=== PATIENT | male | born 1940 | race Caucasian/White ===

== ENCOUNTER 2018-10-09 14:20 | Inpatient (IN) | payer MEDICARE ==
[~2018-10-09] VITALS: Ht 177.8 cm; Wt 84.7 kg
[2018-10-09 14:44] LABS: BASOPHILS ABSOLUTE AUTO 0.06 K/mm3 (0.00-0.23); BASOPHILS PERCENT AUTO 1 % (0-2); EOSINOPHILS ABSOLUTE AUTO 0.15 K/mm3 (0.00-0.68); EOSINOPHILS PERCENT AUTO 2 % (0-6); Hematocrit 46.5 % (37.0-53.0); Hemoglobin 15.1 g/dL (13.5-17.5); IMMATURE GRAN ABSOLUTE AUTO 0.05 K/mm3 (0.00-0.10); IMMATURE GRAN PERCENT AUTO 1 % (0-1); LYMPHOCYTES ABSOLUTE AUTO 3.36 K/mm3 (0.84-5.20); LYMPHOCYTES PERCENT AUTO 37 % (21-46); MONOCYTES ABSOLUTE AUTO 0.71 K/mm3 (0.16-1.47); MONOCYTES PERCENT AUTO 8 % (4-13); Mean Corpuscular HGB 32.1 pg (26.0-34.0); Mean Corpuscular HGB Conc 32.5 g/dL (31.5-36.5); Mean Corpuscular Volume 99 fL (80-100); Mean Platelet Volume 10.1 fL (9.1-12.4); NEUTROPHILS ABSOLUTE AUTO 4.82 K/mm3 (1.96-9.15); NEUTROPHILS PERCENT AUTO 53 % (41-73); Platelet Count 210 K/mm3 (150-400); RDW Standard Deviation 47.8 fL (35.1-46.3); White Blood Cell Count 9.15 K/mm3 (4.00-11.30)
[2018-10-09 15:01] LABS: International Normalized Ratio 0.94
[2018-10-09 15:08] LABS: Alanine Aminotransfer (ALT/SGP 23 U/L (12-78); Albumin, Blood 3.6 g/dL (3.4-5.0); Alk Phos 66 U/L (50-136); Anion Gap 6 mmol/L (6-16); Aspartate Aminotrans (AST/SGOT 16 U/L (12-37); Bilirubin, Total 0.3 mg/dL (0.1-1.0); Blood Urea Nitrogen 23 mg/dL (8-24); Bun/Creatinine Ratio 22.3 (12.0-20.0); CO2, Blood 29 mmol/L (21-32); Calcium, Blood 8.8 mg/dL (8.5-10.1); Chloride, Blood 108 mmol/L (98-108); Creatinine, Blood 1.03 mg/dL (0.60-1.20); Globulin, Blood 3.5 g/dL (2.2-4.0); Glomerular Filtration Rate >60 (60-); Glucose, Blood 131 mg/dL (70-99); Potassium, Blood 3.6 mmol/L (3.5-5.5); Sodium, Blood 143 mmol/L (136-145); Total Protein, Blood 7.1 g/dL (6.4-8.2); Troponin I 0.037 ng/mL (0.000-0.040)
--- NOTE | 2018-10-09 16:30 | NUR ---
ASSUMED CARE: PT ARRIVED FROM [facility] POST STENT FOR STEMI. WOUND SITE RIGHT GROIN. SITE SOFT, NONTENDER. SCANT BLEEDING NOTED BENEATH TCG DRESSING. NO ACUTE CHANGES OR NEEDS AT THIS TIME.
[2018-10-09 16:54] LABS: BASOPHILS ABSOLUTE AUTO 0.05 K/mm3 (0.00-0.23); BASOPHILS PERCENT AUTO 0 % (0-2); EOSINOPHILS ABSOLUTE AUTO 0.04 K/mm3 (0.00-0.68); EOSINOPHILS PERCENT AUTO 0 % (0-6); Hematocrit 45.7 % (37.0-53.0); Hemoglobin 14.6 g/dL (13.5-17.5); IMMATURE GRAN PERCENT AUTO 1 % (0-1); LYMPHOCYTES ABSOLUTE AUTO 1.39 K/mm3 (0.84-5.20); LYMPHOCYTES PERCENT AUTO 9 % (21-46); MONOCYTES ABSOLUTE AUTO 0.56 K/mm3 (0.16-1.47); MONOCYTES PERCENT AUTO 4 % (4-13); Mean Corpuscular HGB 32.7 pg (26.0-34.0); Mean Corpuscular HGB Conc 31.9 g/dL (31.5-36.5); Mean Platelet Volume 10.1 fL (9.1-12.4); NEUTROPHILS ABSOLUTE AUTO 13.25 K/mm3 (1.96-9.15); NEUTROPHILS PERCENT AUTO 86 % (41-73); Platelet Count 181 K/mm3 (150-400); RDW Standard Deviation 49.1 fL (35.1-46.3); Red Blood Cell Count 4.47 M/mm3 (4.30-5.90); White Blood Cell Count 15.39 K/mm3 (4.00-11.30)
[2018-10-09 16:56] LABS: Mean Corpuscular Volume 102 fL (80-100)
--- NOTE | 2018-10-09 18:34 | NUR ---
SHIFT SUMMARY: PT RESTING QUIETLY. NEXT DOOR NEIGHBOR ARRIVED TO VISIT AND LET HIM KNOW STATUS OF HIS PETS. DENIES CHEST PAIN. AWARE TO KEEP HIMSELF FLAT UNTIL 1999. SIPS OF WATER PROVIDED. NO ACUTE CHANGES OR CONCERNS.
--- NOTE | 2018-10-09 19:00 | NUR ---
ASSUMED CARE ASSUMED CARE OF PATIENT. AWAKE AND ALERT. ORIENTED AND COOPERATIVE WITH CARE. OCCASIONAL CONFUSED STATEMENT AND IS FORGETFUL. ASSISTS WITH REPOSITIONING. MONITOR SHOWS NSR WITH FIRST DEGREE AV BLOCK. BP STABLE. O2 @ 2L WITH SATS 93-94%. RESPIRATIONS EVEN AND UNLABORED. DENIES C/O CHEST PAIN. DOES C/O LEFT UPPER QUADRANT PAIN AND STATES THAT IT "FEELS LIKE GAS PAINS." DENIES C/O NAUSEA AT THIS TIME. NS INFUSING @ 100CC/HR PER ORDER. VOIDING USING URINAL WITHOUT DIFFICULTY. PAS TO BLE. RIGHT GROIN SITE SOFT AND WITHOUT HEMATOMA- DRSG WITH SMALL AMOUNT OF SANGUINOUS DRAINAGE. SEE SHIFT ASSESSMENT FOR FULL ASESSMENT.
--- NOTE | 2018-10-09 20:25 | NUR ---
PAIN/NAUSEA PT C/O MILD LEFT UPPER QUADRANT PAIN AND STATES THAT IT "FEELS LIKE GAS PAINS." ALSO C/O INTERMITTENT MILD NAUSEA. CALL TO DR ST- NEW ORDERS RECEIVED.
--- NOTE | 2018-10-09 22:00 | NUR ---
REASSESSMENT MEDICATED WITH MAALOX PLUS @ 210 FOR GI UPSET. PT NOW STATES THAT HE IS PAIN FREE AND DENIES C/O NAUSEA.
--- NOTE | 2018-10-10 01:23 | NUR ---
C/O ACID REFLUX PT C/O BURNING IN THROAT AND "ACID REFLUX." MEDICATED WITH MAALOX PLUS AT THIS TIME. DENIES C/O CHEST PAIN. DENIES NAUSEA. VSS. NO EKG CHANGES NOTED.
--- NOTE | 2018-10-10 02:00 | NUR ---
GENERAL DISCOMFORT/ANXIETY PT C/O GENERALIZED DISCOMFORT AND OF NOT BEING ABLE TO SLEEP. PT IS SLIGHTLY ANXIOUS. MEDICATED WITH MS 2MG IV AT THIS TIME.
--- NOTE | 2018-10-10 05:01 | NUR ---
NAUSEA/DISCOMFORT PT AWAKE FOR AM BLOOD DRAW AND C/O NAUSEA AND GENERAL DISCOMFORT. CONTINUES TO BE SLIGHTLY ANXIOUS. MEDICATED WITH ZOFRAN 4MG IV FOR NAUSEA AND MS 2MG IV FOR DISCOMFORT. DENIES C/O CHEST PAIN. VSS. NO EKG CHANGES NOTED.
[2018-10-10 05:52] LABS: Alanine Aminotransfer (ALT/SGP 77 U/L (12-78); Albumin, Blood 3.1 g/dL (3.4-5.0); Albumin/Globulin Ratio 1.1 (0.8-1.8); Alk Phos 54 U/L (50-136); Anion Gap 6 mmol/L (6-16); Aspartate Aminotrans (AST/SGOT 569 U/L (12-37); Bilirubin, Total 0.4 mg/dL (0.1-1.0); Blood Urea Nitrogen 21 mg/dL (8-24); Bun/Creatinine Ratio 26.6 (12.0-20.0); CO2, Blood 26 mmol/L (21-32); Calcium, Blood 7.9 mg/dL (8.5-10.1); Chloride, Blood 111 mmol/L (98-108); Creatinine, Blood 0.79 mg/dL (0.60-1.20); Globulin, Blood 2.9 g/dL (2.2-4.0); Glomerular Filtration Rate >60 (60-); Glucose, Blood 120 mg/dL (70-99); Potassium, Blood 3.9 mmol/L (3.5-5.5); Sodium, Blood 143 mmol/L (136-145)
--- NOTE | 2018-10-10 06:09 | NUR ---
SHIFT SUMMARY SLEPT INTERMITTENTLY DURING NOC. ROUSES EASILY TO STIMULI. MEDICATED WITH MAALOX PLUS FOR C/O 'GAS PAINS" AND "ACID REFLUX". MEDICATED WITH ZOFRAN X 1 FOR C/O NAUSEA. ALSO MEDICATED WITH MS X 2 FOR C/O GENERAL DISCOMFORT AND RESTLESSNESS/ANXIOUSNESS WITH GOOD RELIEF. MONITOR SHOWS NSR WITH FIRST DEGREE AV BLOCK. ONE EPISODE OF SHORT RUN OF VTACH. BP STABLE. REMAINS ON 2LNC WITH SATS 93-95%. RESPIRATIONS EVEN AND UNLABORED. DENIES C/O SOB OR DYSPNEA. NS INFUSING @ 100CC/HR PER ORDER. VOIDING WITHOUT DIFFICULTY. PAS TO BLE. WILL REPORT TO DAY SHIFT RN WHEN AVAILABLE.
--- NOTE | 2018-10-10 06:38 | NUR ---
RIGHT GROIN SITE RIGHT GROIN SITE WITH SMALL HEMATOMA NOTED. BRUISING UNCHANGED FROM PREVIOUS ASSESSMENTS. PT DENIES C/O FLANK PAIN OR OTHER DISCOMFORT. MANUAL PRESSURE HELD FOR APPROXIMATELY TEN MINUTES WITH DISSIPATION OF HEMATOMA.
--- NOTE | 2018-10-10 07:30 | NUR ---
ASSUMED CARE OF PATIENT; SEE ASSESSMENT CHARTING FOR DETAILS. PATIENT [place] AND SOMETIMES HAS CONFUSED ANSWERS TO QUESTIONS ASKED; RN REWORDS QUESTION AND PATIENT MANAGES TO "GET IT" THEN. ORIENTED AND COOPERATIVE; DENIES ACUTE PAIN. MONITOR NSR WITH 1ST DEGREE AV BLOCK. LUNGS WITH SOME WHEEZES BUT CLEAR WITH COUGH. INSTRUCTED PATIENT TO HOLD R GROIN SITE WITH HIS HAND WHEN COUGHING. HAS HEMATOMA PRESENT BUT BRUISING HAS NOT EXTENDED FROM WHERE BLACK MARKER DEFINED INITIAL BRUISING AND SWELLING. OVERALL STATUS STABLE.
--- NOTE | 2018-10-10 09:30 | NUR ---
PATIENT UP TO BSC, WITH STANDBY ASSIST.; PASSED LARGE AMOUNTS OF FLATUS; NO STOOL. GIVEN DOSE OF MILK OF MAGNESIA AND A STOOL SOFTENER WITH AM MEDS.
--- NOTE | 2018-10-10 11:00 | NUR ---
UP TO BSC WITH SBA; PASSED MORE FLATUS BUT NO STOOL. ASSISTED BACK TO BED AND MONITORING DEVICES REATTACHED.
--- NOTE | 2018-10-10 14:30 | NUR ---
DR. ST HERE TO EVAL. PATIENT. INFORMED PATIENT THAT THE BRUISING TO R GROIN SITE WILL TAKE SEVERAL WEEKS FOR BRUISING TO RESOLVE AND INFORMED PATIENT THAT BRUISING WILL EXTEND DOWN LEG. PHYSICIAN NOT CONCERNED RE: HEMATOMA PRESENT TO R GROIN; NO INCREASED SWELLING; SOME EXTENSION OF BRUISING. PHYSICIAN INSTRUCTED RN TO HAVE HOSPITALIST CONSULT TO MANAGE MEDS. AND DISCHARGE; STATES HE WILL NOT BE HERE TOMORROW (LOCUMS); RN V/U.
--- NOTE | 2018-10-10 14:45 | NUR ---
RN PUT IN CONSULT FOR HOSPITALIST; DR. CLARK NEXT HOSP. ON LIST FOR CONSULTS/ADMITS. RN CONTACTED DR. CLARK RE: ABOVE CONSULT; DR. CLARK SEEMED UPSET RE: CONSULT AND INFORMED RN THAT CARDIOLGY SHOULD COVER ONE ANOTHER; RN EXPLAINED THAT DR. ST DID NOT WANT PATIENT TO GET LOST IN SHUFFLE. DR. CLARK INQUIRED WHO IS PATIENTS' PCP; RN ASKED PATIENT WHO STATED IT WAS CHARLINE SALINAS (PATIENT SPELLED LAST NAME FOR RN). DR. CLARK ACCESSED PHYSICIAN LIST AND FOUND DR. SALINAS IS MEMBER OF [employer]; THEY HAVE THEIR OWN O/C PHYSICIAN.
--- NOTE | 2018-10-10 15:00 | NUR ---
DR. HELLER WALKED BY AND RN INQUIRED IF CHARLINE SALINAS WAS A MEMBER OF [facility]; DR ACKNOWLEDGED YES. HE AND DR. CLARK WENT TO CHECK COMPUTER AND DISCUSS; DR. HELLER WILL FOLLOW PATIENT. NOTE: DR. HELLER SPOKE TO DR. HILLS RE: CONSULT, ETC. THEY DECIDED DR. HELLER WOULD DO CONSULT AND HAVE [facility]URE[facility] BLOOMERY PHYSICIAN O/C TOMORROW F/U WITH PATIENT AND HIS NEEDS; RN V/U. INFORMED PHYSICIAN THAT DR. ST WANTS PATIENT TO GO TO OUTPATIENT C. REHAB. ONCE HE IS DISCHARGED TO HOME.
--- NOTE | 2018-10-10 16:45 | NUR ---
PATIENT WITH INCREASING CONFUSION AND RN HAVING MORE DIFFICULTY REORIENTING PATIENT. PULLS OXYGEN OFF WELL BIOX.. HELICOPTER SPECIALIST AND RN PULLED PATIENT UP IN BED AND REPLACED OXYGEN, ETC. PATIENT SEEMED LESS CONFUSED ONCE BIOX READING ABOVE 80'S. PATIENT WITH LOW GRADE FEVER OF 99.7; ENCOURAGED TO COUGH AND DEEP BREATHE.
--- NOTE | 2018-10-10 17:05 | NUR ---
RN WENT TO PATIENTS' ROOM TO CHECK ON HIM; ALL MONITORS PULLED OFF AND BOTH IV'S PULLED OUT. PATIENT THINKING HE IS AT HOME; RN TRYING TO RE-ORIENT PATIENT AND REFOCUS ATTENTION TO THE PRESENT. PATIENT APPEARS ANXIOUS BUT ALLOWING RN TO ATTEMPT PLACEMENT OF NEW IV. ONCE RN STARTED TO POKE IV INTO SKIN PATIENT STARTE TO GRAB RNS' ARM AND TOLD HER TO "GET AWAY, YOU NEED TO GET OUT OF YOUR DREAM"; STATED OTHER OFF THE WALL REMARKS; DISORIENTED AND CONFUSED AND TRYING TO SIT UP IN BED. RN HAD MORE NURSES COME; RESTRAINTS APPLIED TO UE'S WITH SOME DIFFICULTY; PATIENT STARTED KICKING LEGS (RN CONCERNED PATIENT WILL DISTURB R GROIN SITE OR INJURE SELF; SECURITY BROUGHT IN TO HELP WITH PLACEMENT OF LE RESTRAINTS. RN CONTACTED DR. HELLER TO UPDATE AND REQUEST MED. TO CALM PATIENT; ATIVAN ORDER GIVEN.
--- NOTE | 2018-10-10 17:32 | NUR ---
DANN RUSS RN PLACED 18G IV TO L MEDIAL FOREARM; ATIVAN 1MG GIVEN IV IMMEDIATELY AFTER IV PLACED. PATIENT CALMED; ALL LINES ATTACHED/MONITORING DEVICES. PATIENT COMFORTABLE AND VSS. SECURITY LEFT AFTER PATIENT SLEEPING.
--- NOTE | 2018-10-10 18:00 | NUR ---
SUMMARY: PATIENT SLEEPING; RESTRAINTS IN PLACE BUT NOT TOO TIGHT. VSS AND MONITOR NSR. OXYGEN AT 2L/MIN VIA NC AND BIOX. LOW 90'S. SOCIAL SERVICE REFERRAL PLACED BY RN D/T CONCERN OF PATIENT'S CONFUSION AND RESIDING ALONE. WILL REPORT TO ONCOMING RN.
--- NOTE | 2018-10-10 21:36 | NUR ---
ASSUMED CARE OF PT REPORT RCV'D FROM ISAIAH LANDA. PT ALERT TO SELF BUT CONFUSED TO LOCATION AND SITUATION. PT IN 4 PT SOFT WRIST/ANKLE RESTRAINTS DUE TO CONFUSION AND PULLING OUT IV'S. RT GROIN SITE HAS HEMATOMA THAT PER DAYSHIFT RN DR ST HAS ASSESSED SITE AND STATES NO CHANGE SINCE LAST ASSESSMENT. DRESSING INTACT WITH OLD BLOOD NOTICED. VSS. SEE FULL SHIFT ASSESSMENT.
--- NOTE | 2018-10-11 01:36 | NUR ---
MIDSHIFT SUMMARY PT AWAKE CONFUSED AND SAYING HE "HAD A BAD DREAM". PT REORIENTED AND REPOSITIONED IN BED. 15 MINS LATER PT AGITATED PULLING ROUGHLY ON WRIST RESTRAINTS. PT PULLED LEADS OFF CHEST, GOWN AND ATTENDS TORN OFF. PT YELLING THAT HE "WANTED SCISSORS TO GET FROM UNDERNEATH THIS THING". PT REMINDED THAT HE IS IN THE HOSPITAL AND THAT HE HAD A HEART ATTACK. PT DENIES THAT HE IS IN THE HOSPITAL OR THAT HE HAD A HEART ATTACK.
--- NOTE | 2018-10-11 05:12 | NUR ---
SHIFT SUMMARY PT REMAINS IN 4 POINT RESTRAINTS HE CONTINUES TO BE CONFUSED. PT BECOMES AGITATED WITH NO PROVOCATION AND BEGINS PULLING AT AND PULLING OFF LINES/TUBES, ATTENDS, AND GOWN. PT MEDICATED 1 TIME WITH 1 MG ATIVAN TO DECREASE AGITATION. PT ABLE TO RESPOND TO COMMANDS WITH "YES, OK" BUT DOES NOT ALWAYS FOLLOW THEM. PT OFTEN ANSWER'S QUESTIONS WITH RANDOM WORDS. WHEN ASKED IF HE KNEW WHERE HE WAS PT ANSWERED "1990". PT MISTOOK THIS NURSE FOR HIS ON SEVERAL OCCASIONS AND SEEMED TO BE HAVING AUDITORY HALLUCINATIONS WHEN TELLING STORIES. PT WOULD "ASK QUESTION" OF "PEOPLE THAT HE KNEW" AND SEEMED TO LISTEN FOR RESPONSE AND REPLY. VSS THROUGHOUT SHIFT. SEE PREVIOUS SHIFT NOTES. WILL REPORT TO DAYSHIFT NURSE.
--- NOTE | 2018-10-11 09:25 | NUR ---
Echocardiogram using 0.5ml of Definity contrast performed.
--- NOTE | 2018-10-11 10:22 | NUR ---
PT HAS BEEN DROWSY THIS AM AND SLEEPING AT TIMES BUT REMAINS QUITE CONFUSED. WILL RESPOND TO CONVERSATIONS BUT IS INAPPROP. OTHER THAN ADMITTING TO BEING AT HOSP. BUT DOES NOT KNOW THE REASON WHY. HE HAS WOKEN UP AND ATTEMPTED TO KICK W/O ANY PROVCATION AND WILL LEAVE SOFT WRIST AND ANKLE RESTRAINTS ON. VS NOTED AND HAVE NOT ATTEMPTED PO INTAKE AT THIS TIME DUE TO ABLITY TO AWAKEN AND THEN GO TO SLEEP QUICKLY AND EASILY. PT IS INCONT. OF URINE.
--- NOTE | 2018-10-11 10:38 | NUR ---
R GROIN SITE IS BRUISED AND STABLE.
--- NOTE | 2018-10-11 18:06 | NUR ---
PT HAS BEEN RESTING THIS PM W/O DISTRESS AND SL MENTALLY FUZZY BUT IS IMPROVING AND IS ANSWERING QUESTIONS BETTER. FAMILY HAS CALLED IN AND PT ALLOWED SHARING OF INFORMATION WITH THEM. PT WILL TO FAXED DOWN FROM SON [employer] AND WILL AWAITE PAPERS.
--- NOTE | 2018-10-11 20:08 | NUR ---
PATIENT AWAKE AND ANSWERING QUESTIONS APPROPRIATELY , YET FORGETFUL AND CONTINUES TO PULL AT HEART MONITOR AND OTHER LINES. PATIENT TEMP 101.0 CALL PLACED TO DOCTOR PHAM. RIGHT GROIN SITE REMAINS BRUISED WITH FIRMNESS UNDER DRESSING SITE. PATIENT ABLE TO TAKE PO MEDICATIONS WITH OUT DIFFICULTY. 4 POINT RESTRAINTS CONTINUE TO HELP PATIENT TO REMEMBER TO NOT PULL AT LINES AND TO NOT PUT LEGS OUT OF BED.
--- NOTE | 2018-10-11 20:30 | NUR ---
[place] [facility] CALLED REGARDING FEVER. UA SENT, ORDER OBTAINED FOR ONE TIME TYLENOL AND ROCEPHIN. CHEST XRAY DONE. PATIENT PULLING APART OXYGEN CORD BREAKING IT IN TWO, AND PULLING OFF HEART MONITOR. PATIENT NOW ONLY ORIENTATED TO SELF. QUICK TO ANGER WHEN ATTEMPTING TO REORIENTED PATIENT
[2018-10-11 21:48] LABS: Source, Urine Voided
[2018-10-11 21:54] LABS: Appearance, Urine Hazy (Clear); Bilirubin, Urine Neg (Neg); Blood, Urine 1+ (Neg); Color, Urine Yellow (P-Yellow); Glucose Qualitative, Urine Neg (Neg); Ketones, Urine Neg (Neg); Leukocyte Esterase, Urine 1+ (Neg); Nitrite, Urine Neg (Neg); Protein, Urine 2+ (Neg); Urobilinogen, Urine NORM (Normal)
[2018-10-11 22:01] LABS: Amorphous Mod (0-Heavy); Bacteria Few /hpf; Red Blood Cells, Urine 0-2 /hpf (0-2); Squamous Epithelial Cells Rare /hpf (Few)
[2018-10-12 04:08] LABS: BASOPHILS ABSOLUTE AUTO 0.04 K/mm3 (0.00-0.23); BASOPHILS PERCENT AUTO 0 % (0-2); EOSINOPHILS ABSOLUTE AUTO 0.02 K/mm3 (0.00-0.68); EOSINOPHILS PERCENT AUTO 0 % (0-6); Hematocrit 45.7 % (37.0-53.0); Hemoglobin 14.6 g/dL (13.5-17.5); IMMATURE GRAN ABSOLUTE AUTO 0.12 K/mm3 (0.00-0.10); IMMATURE GRAN PERCENT AUTO 1 % (0-1); LYMPHOCYTES ABSOLUTE AUTO 1.14 K/mm3 (0.84-5.20); LYMPHOCYTES PERCENT AUTO 7 % (21-46); MONOCYTES ABSOLUTE AUTO 1.29 K/mm3 (0.16-1.47); MONOCYTES PERCENT AUTO 8 % (4-13); Mean Corpuscular HGB 32.4 pg (26.0-34.0); Mean Corpuscular HGB Conc 31.9 g/dL (31.5-36.5); Mean Corpuscular Volume 101 fL (80-100); Mean Platelet Volume 10.7 fL (9.1-12.4); NEUTROPHILS ABSOLUTE AUTO 13.19 K/mm3 (1.96-9.15); NEUTROPHILS PERCENT AUTO 83 % (41-73); Platelet Count 183 K/mm3 (150-400); RDW Coefficient Variation 13.2 % (11.7-14.2); RDW Standard Deviation 49.9 fL (35.1-46.3); Red Blood Cell Count 4.51 M/mm3 (4.30-5.90)
[2018-10-12 04:29] LABS: Alanine Aminotransfer (ALT/SGP 89 U/L (12-78); Albumin, Blood 2.9 g/dL (3.4-5.0); Albumin/Globulin Ratio 0.8 (0.8-1.8); Alk Phos 70 U/L (50-136); Anion Gap 7 mmol/L (6-16); Aspartate Aminotrans (AST/SGOT 213 U/L (12-37); Bilirubin, Total 1.3 mg/dL (0.1-1.0); Blood Urea Nitrogen 22 mg/dL (8-24); Bun/Creatinine Ratio 23.9 (12.0-20.0); CO2, Blood 27 mmol/L (21-32); Calcium, Blood 8.1 mg/dL (8.5-10.1); Chloride, Blood 106 mmol/L (98-108); Creatinine, Blood 0.92 mg/dL (0.60-1.20); Globulin, Blood 3.8 g/dL (2.2-4.0); Glomerular Filtration Rate >60 (60-); Glucose, Blood 120 mg/dL (70-99); Magnesium, Blood 2.2 mg/dL (1.6-2.4); Phosphorus, Blood 1.3 mg/dL (2.5-4.9); Potassium, Blood 3.7 mmol/L (3.5-5.5); Sodium, Blood 140 mmol/L (136-145); Total Protein, Blood 6.7 g/dL (6.4-8.2)
--- NOTE | 2018-10-12 05:49 | NUR ---
SUMMARY PATIENT REMAINS CONFUSED T/O THE NIGHT. ATTEMPTING TO GET OUT OF BED WITHOUT ASSISTANCE SEVERAL TIMES AND PULLING APART BIOX PROBE TWICE DURING THE NIGHT. 4 POINT RESTRAINTS REMAIN IN PLACE. AT TIMES PATIENT WILL REMEMBER THAT HE IS IN THE HOSPITAL AND AT OTHER TIMES WILL HAVE AUDIBLE AND VISUAL HALLUCINATIONS. NO FURTHER FEVERS DURING THE NIGHT AFTER TYLENOL.
--- NOTE | 2018-10-12 11:11 | NUR ---
PT HAS BEEN UP IN CHAIR NIHARIKA HOROWITZ AND IS PULLING AND RESTLESSNESS IN MOTION. PT VIEWED FOR SHORT PERIOD W/O RESTRAINTS BUT WERE THEN REPLACE PT IS UNABLE TO COOPERATE WITH CARE.
--- NOTE | 2018-10-12 18:28 | NUR ---
PT HAS BEEN UP IN CHAIR AND RESTING WELL BUT FREQUENTLY IN MOTION AND RESISTING RESTRAINTS. DR OSULLIVAN IN TO SEE AND ASSESS PT WTIH NEW ORDERS.
--- NOTE | 2018-10-12 19:30 | NUR ---
PATIENT UP IN RECLINER CHAIR. RESTLESS ATTEMPTING TO GET UP. PATIENT VERBALIZED THAT HE WAS WANTING TO GO TO HIS AND TAKE HER TO DINNER. PATIENT MAEW ORIENTATION TO SELF ONLY, HALLUCINATING SEEING CATS AND 2 DOGS IN HIS ROOM. PATIENT ABLE TO STAND AND TRANSFER TO BED WITH 2 PERSON ASSIST, POOR BALANCE WHEN STANDING. RESTRAINTS CONTINUED DUE TO PATIENT BEING VERY IMPULSIVE AND UNPREDICTABLE. RIGHT GROIN SITE CONTINUES TO BE BRUISED WITH UNCHANGED SWELLING TO AREA. IV TO LEFT ARM LEAKING AND SWOLLEN, SITE DC'D AND NEW IV STARTED TO RIGHT FA. PATIENT CONTINUES TO BE CONFUSED AND ATTEMPT TO GET OUT OF BED DESPITE FREQUENT ATTEMPT TO REORIENTED PATIENT.
--- NOTE | 2018-10-12 22:00 | NUR ---
PATIENT ABLE TO BRUSH HIS OWN TEETH WHEN SET UP AND LITTLE COACHING. CONTINUES TO BE CONFUSED AND PUTTING LEGS OUT OF BED ATTEMPTING TO GET OUT OF BED. PATIENT PULLING OFF HEART MONITOR AND OTHER LINES WHEN UNRESTRAINED.
--- NOTE | 2018-10-13 00:27 | NUR ---
PATIENT RESTING QUIETLY APPEARS TO BE SLEEP, BIOX 93% ON RA OXYGEN REMAINS OFF AT THIS TIME
--- NOTE | 2018-10-13 01:11 | NUR ---
PATIENT AWAKE, BIOX 89-90% ON RA, OXYGEN PLACED AT 2L/NC
[2018-10-13 03:43] LABS: BASOPHILS ABSOLUTE AUTO 0.03 K/mm3 (0.00-0.23); BASOPHILS PERCENT AUTO 0 % (0-2); EOSINOPHILS ABSOLUTE AUTO 0.03 K/mm3 (0.00-0.68); EOSINOPHILS PERCENT AUTO 0 % (0-6); Hematocrit 40.9 % (37.0-53.0); Hemoglobin 13.8 g/dL (13.5-17.5); IMMATURE GRAN ABSOLUTE AUTO 0.18 K/mm3 (0.00-0.10); IMMATURE GRAN PERCENT AUTO 1 % (0-1); LYMPHOCYTES ABSOLUTE AUTO 1.39 K/mm3 (0.84-5.20); LYMPHOCYTES PERCENT AUTO 8 % (21-46); MONOCYTES ABSOLUTE AUTO 1.42 K/mm3 (0.16-1.47); MONOCYTES PERCENT AUTO 8 % (4-13); Mean Corpuscular HGB 32.4 pg (26.0-34.0); Mean Corpuscular HGB Conc 33.7 g/dL (31.5-36.5); Mean Platelet Volume 10.5 fL (9.1-12.4); NEUTROPHILS ABSOLUTE AUTO 14.97 K/mm3 (1.96-9.15); NEUTROPHILS PERCENT AUTO 83 % (41-73); Platelet Count 190 K/mm3 (150-400); RDW Coefficient Variation 12.9 % (11.7-14.2); RDW Standard Deviation 45.8 fL (35.1-46.3); Red Blood Cell Count 4.26 M/mm3 (4.30-5.90); White Blood Cell Count 18.02 K/mm3 (4.00-11.30)
[2018-10-13 03:44] LABS: Mean Corpuscular Volume 96 fL (80-100)
[2018-10-13 04:01] LABS: Alanine Aminotransfer (ALT/SGP 75 U/L (12-78); Albumin, Blood 2.5 g/dL (3.4-5.0); Albumin/Globulin Ratio 0.7 (0.8-1.8); Alk Phos 63 U/L (50-136); Anion Gap 11 mmol/L (6-16); Aspartate Aminotrans (AST/SGOT 183 U/L (12-37); Bilirubin, Total 0.8 mg/dL (0.1-1.0); Blood Urea Nitrogen 25 mg/dL (8-24); Bun/Creatinine Ratio 29.7 (12.0-20.0); CO2, Blood 23 mmol/L (21-32); Chloride, Blood 108 mmol/L (98-108); Creatinine, Blood 0.84 mg/dL (0.60-1.20); Globulin, Blood 3.7 g/dL (2.2-4.0); Glomerular Filtration Rate >60 (60-); Glucose, Blood 134 mg/dL (70-99); Magnesium, Blood 2.2 mg/dL (1.6-2.4); Phosphorus, Blood 1.3 mg/dL (2.5-4.9); Potassium, Blood 3.7 mmol/L (3.5-5.5); Sodium, Blood 142 mmol/L (136-145); Total Protein, Blood 6.2 g/dL (6.4-8.2)
--- NOTE | 2018-10-13 04:21 | NUR ---
PATIENT TAKING OXYGEN OFF, BIOX 90-92% WILL STAY ON RA FOR NOW
--- NOTE | 2018-10-13 05:56 | NUR ---
SUMMARY PATIENT CONFUSED AND RESTLESS MOST OF THE NIGHT. OXYGEN 2L/NC ON WHILE SLEEPING DUE TO BIOX DOWN TO 89-90% MAINTAINING BIOX 93% ON RA WHILE AWAKE. [address] DUE TO PATIENT ATTEMPTING TO GET OUT OF BED AND PULLING ON LINES AND CORDS T/O NIGHT.
--- NOTE | 2018-10-13 11:22 | NUR ---
PT HAS BEEN UP AND TO BSC THIS AM WITH SBA AND COOP BUT REMAINS CONFUSED. PT LEFT UP IN CHAIR AND TOLERATING WELL BUT RESTRAINTS REMAIN IN PLACE. PT IS TAKING PO WELL.
--- NOTE | 2018-10-13 12:54 | NUR ---
PT TO AND FROM CT W/O INCIDENT. PT SOMEWHAT SOMULANT FOR SERAQUAL DOSE. BP IS SOFT AT THIS POINT NOTED AND WILL FOLLOW.
--- NOTE | 2018-10-13 15:33 | NUR ---
PT IS AWAKENING FROM SERAQUAL DOSE EARLIER TODAY. PT REMAINS CONFUSED HOWEVER. VS NOTE. PT DECLINES FROM NEEDING URINAL AND PULL-UPS ARE DRY. PT TO BE TRANSFERED TO MEDICAL FLOOR ROOM IS CLEAN.
--- NOTE | 2018-10-13 17:18 | NUR ---
PT HAS BEEN SLEEPING BUT OCC RESTLESS THIS PM AND SETTING UP IN CHAIR. REPORT CALLED TO [facility] COLON AND WILL TRANSFER TO ROOM 351 [address]. 1700 MEDS HELP AND REPORTED VLADISLAV TO HAVEN, SHE WILL FOLLOW UP.
--- NOTE | 2018-10-13 17:45 | NUR ---
TRANSFERRED TO [facility] FLOOR [address] BED LOW AND IN LOCKED POSITION. PT ABLE TO STATE AND FULL NAME. UNABLE TO STATE LOCATION, DATE OR SITUATION.
--- NOTE | 2018-10-14 04:58 | NUR ---
SHIFT SUMMARY PT ABLE TO STATE HIS NAME AND BIRTHDAY AND THAT HE WAS IN [place]. UNABLE TO TELL ME WHAT THE DATE WAS, WHO THE PRESIDENT WAS, OR THAT HE WAS IN A HOSPITAL. PT SLEEPING ALMOST THE ENTIRE NIGHT. CALM BUT CONFUSED. REMOVED PT'S ANKLE RESTRAINTS AND PT DID WELL SO LEFT THEM OFF FOR THE REMAINDER OF THE NIGHT. PT FREQUENTLY TRYING TO PULL ON THINGS WHEN AWAKE SO LEFT WRIST RESTRAINTS ON FOR THE TIME BEING. PT DENIES PAIN AND NO NONVERBAL S/S OF PAIN NOTED. PT ON 3 L O2 NC. VOIDED USING THE URINAL AND ASSISTANCE WHILE IN BED. TELEMETRY ON READING SR 70'S. BLOOD PRESSURE REMAINS LOW BUT APPEARS IMPROVED FROM YESTERDAY. NO ACUTE CHANGES. VSS. WILL CONTINUE TO MONITOR AND REPORT TO DAY RN.
[2018-10-14 05:05] LABS: BASOPHILS ABSOLUTE AUTO 0.04 K/mm3 (0.00-0.23); BASOPHILS PERCENT AUTO 0 % (0-2); EOSINOPHILS ABSOLUTE AUTO 0.11 K/mm3 (0.00-0.68); EOSINOPHILS PERCENT AUTO 1 % (0-6); Hematocrit 40.1 % (37.0-53.0); Hemoglobin 12.9 g/dL (13.5-17.5); IMMATURE GRAN ABSOLUTE AUTO 0.12 K/mm3 (0.00-0.10); IMMATURE GRAN PERCENT AUTO 1 % (0-1); LYMPHOCYTES ABSOLUTE AUTO 1.03 K/mm3 (0.84-5.20); LYMPHOCYTES PERCENT AUTO 7 % (21-46); MONOCYTES ABSOLUTE AUTO 1.16 K/mm3 (0.16-1.47); MONOCYTES PERCENT AUTO 8 % (4-13); Mean Corpuscular HGB 31.5 pg (26.0-34.0); Mean Corpuscular HGB Conc 32.2 g/dL (31.5-36.5); Mean Corpuscular Volume 98 fL (80-100); Mean Platelet Volume 10.9 fL (9.1-12.4); NEUTROPHILS ABSOLUTE AUTO 11.88 K/mm3 (1.96-9.15); NEUTROPHILS PERCENT AUTO 83 % (41-73); Platelet Count 185 K/mm3 (150-400); RDW Standard Deviation 46.4 fL (35.1-46.3); Red Blood Cell Count 4.09 M/mm3 (4.30-5.90); White Blood Cell Count 14.34 K/mm3 (4.00-11.30)
[2018-10-14 05:38] LABS: Alanine Aminotransfer (ALT/SGP 163 U/L (12-78); Albumin, Blood 2.3 g/dL (3.4-5.0); Albumin/Globulin Ratio 0.6 (0.8-1.8); Alk Phos 73 U/L (50-136); Anion Gap 6 mmol/L (6-16); Aspartate Aminotrans (AST/SGOT 252 U/L (12-37); Bilirubin, Total 0.7 mg/dL (0.1-1.0); Blood Urea Nitrogen 26 mg/dL (8-24); Bun/Creatinine Ratio 32.3 (12.0-20.0); CO2, Blood 27 mmol/L (21-32); Calcium, Blood 7.9 mg/dL (8.5-10.1); Chloride, Blood 109 mmol/L (98-108); Creatinine, Blood 0.81 mg/dL (0.60-1.20); Globulin, Blood 3.7 g/dL (2.2-4.0); Glomerular Filtration Rate >60 (60-); Glucose, Blood 128 mg/dL (70-99); Potassium, Blood 3.6 mmol/L (3.5-5.5); Sodium, Blood 142 mmol/L (136-145)
--- NOTE | 2018-10-14 18:40 | NUR ---
SHIFT SUMMARY PT ALERT AND ORIENTED THIS MORNING AND APPROPRIATE. RESTRAINTS REMOVED AT 0800. STATED HE WAS GREATFUL SINCE HE LIKES TO LAY ON HIS SIDE. OT IN TO WORK WITH HIM THIS MORNING AND HE WAS UNSTEADY ON HIS FEET. CHAIR ALARM PLACED WHILE UP IN CHAIR AND PT DID FORGET TO USE HIS BUTTON. HE APPEARS TO HAVE TROUBLE WITH HIS STM. THIS AFTERNOON REPORTED HE HADN'T GOTTEN ANY MEALS TODAY AND WAS HUNGRY. REMINDED HIM HE HAD AND HE JUST FORGOT. TOOK AN NAP THIS AFTERNOON. O2 REMOVED AND NOW ON ROOM AIR.
--- NOTE | 2018-10-15 06:17 | NUR ---
SHIFT SUMMARY: PT MENTATION CONT TO IMPROVE. PT IS A&O, WITH MINOR FORGETFULNESS, MOSTLY SHORT TERM MEMORY PROBLEMS. PT IS CALL LT APPROP, SBA TO BR. CONTINENT. ON 2L VIA WA @ [facility]. ANTIBIOTICS ADMINISTERED PER EMAR ORDERS TONIGHT. REPEAT CHEST XRAY THIS AM TO CHECK PROGRESS OF PNA. NO OTHER CHANGES TO REPORT. WILL CONT TO MONITOR AND PROVIDE CARE UNTIL PRESUMED BY ONCOMING RN.
[2018-10-15 14:17] LABS: Stool Occult Bld Immuno 1 Negative (NEGATIVE)
--- NOTE | 2018-10-15 18:43 | NUR ---
SHIFT SUMMARY MICKEY DENIED PAIN TODAY. FRIEND VISITED, PT SAW AND CLEARED PT TO BE INDEPENDENT. HE WAS ALERT AND ORIENTED (BUT VERY FLAT AFFECT) UNTIL EARLY EVENING, SHOWING SOME SIGNS OF CONFUSION. BED ALARM PLACED. SPIKED TEMP OF 101.7. CONTINENT. TOOK PILLS ORDERED. WCTM
--- NOTE | 2018-10-15 18:48 | NUR ---
INFORMED DR RAMOS OF TEMP OF 101.7, SHE IS ORDERING TYLENOL. TM
[2018-10-16 04:50] LABS: BASOPHILS ABSOLUTE AUTO 0.06 K/mm3 (0.00-0.23); BASOPHILS PERCENT AUTO 0 % (0-2); EOSINOPHILS ABSOLUTE AUTO 0.25 K/mm3 (0.00-0.68); EOSINOPHILS PERCENT AUTO 2 % (0-6); Hematocrit 37.7 % (37.0-53.0); Hemoglobin 12.3 g/dL (13.5-17.5); IMMATURE GRAN ABSOLUTE AUTO 0.13 K/mm3 (0.00-0.10); IMMATURE GRAN PERCENT AUTO 1 % (0-1); LYMPHOCYTES ABSOLUTE AUTO 1.23 K/mm3 (0.84-5.20); LYMPHOCYTES PERCENT AUTO 9 % (21-46); MONOCYTES ABSOLUTE AUTO 1.21 K/mm3 (0.16-1.47); MONOCYTES PERCENT AUTO 9 % (4-13); Mean Corpuscular HGB 31.9 pg (26.0-34.0); Mean Corpuscular HGB Conc 32.6 g/dL (31.5-36.5); Mean Corpuscular Volume 98 fL (80-100); Mean Platelet Volume 10.8 fL (9.1-12.4); NEUTROPHILS ABSOLUTE AUTO 11.11 K/mm3 (1.96-9.15); NEUTROPHILS PERCENT AUTO 80 % (41-73); Platelet Count 225 K/mm3 (150-400); RDW Standard Deviation 46.3 fL (35.1-46.3); Red Blood Cell Count 3.86 M/mm3 (4.30-5.90); White Blood Cell Count 13.99 K/mm3 (4.00-11.30)
--- NOTE | 2018-10-16 23:49 | NUR ---
PATIENT GETTING OUT OF BED HALLUCINATING. AND DE-SATURATING DOWN TO 78% PUT HIS O2 BACK ON. SATURATION IS BACK UP TO 92-93% HELPED PATIENT BACK TO BED. ALARMED BED. ALSO ON MONITOR.
[2018-10-17 05:06] LABS: BASOPHILS ABSOLUTE AUTO 0.07 K/mm3 (0.00-0.23); BASOPHILS PERCENT AUTO 0 % (0-2); EOSINOPHILS ABSOLUTE AUTO 0.27 K/mm3 (0.00-0.68); EOSINOPHILS PERCENT AUTO 2 % (0-6); Hematocrit 36.3 % (37.0-53.0); Hemoglobin 11.8 g/dL (13.5-17.5); IMMATURE GRAN ABSOLUTE AUTO 0.18 K/mm3 (0.00-0.10); IMMATURE GRAN PERCENT AUTO 1 % (0-1); LYMPHOCYTES ABSOLUTE AUTO 1.53 K/mm3 (0.84-5.20); LYMPHOCYTES PERCENT AUTO 9 % (21-46); MONOCYTES ABSOLUTE AUTO 1.39 K/mm3 (0.16-1.47); MONOCYTES PERCENT AUTO 8 % (4-13); Mean Corpuscular HGB 31.9 pg (26.0-34.0); Mean Corpuscular HGB Conc 32.5 g/dL (31.5-36.5); Mean Corpuscular Volume 98 fL (80-100); Mean Platelet Volume 10.6 fL (9.1-12.4); NEUTROPHILS ABSOLUTE AUTO 14.04 K/mm3 (1.96-9.15); NEUTROPHILS PERCENT AUTO 80 % (41-73); Platelet Count 252 K/mm3 (150-400); RDW Coefficient Variation 13.1 % (11.7-14.2); RDW Standard Deviation 46.6 fL (35.1-46.3); White Blood Cell Count 17.48 K/mm3 (4.00-11.30)
[2018-10-17 05:28] LABS: Anion Gap 5 mmol/L (6-16); Blood Urea Nitrogen 22 mg/dL (8-24); Bun/Creatinine Ratio 27.8 (12.0-20.0); CO2, Blood 26 mmol/L (21-32); Calcium, Blood 7.9 mg/dL (8.5-10.1); Chloride, Blood 110 mmol/L (98-108); Creatinine, Blood 0.79 mg/dL (0.60-1.20); Glomerular Filtration Rate >60 (60-); Glucose, Blood 141 mg/dL (70-99); Potassium, Blood 4.1 mmol/L (3.5-5.5); Sodium, Blood 141 mmol/L (136-145)
--- NOTE | 2018-10-17 18:22 | NUR ---
PATIENT HAS SHOWN AN INCREASE IN CONFUSION THROUGH OUT THE DAY. HE HAS REFUSED ALL MEALS TODAY BUT DID EAT A SALAD BROUGHT IN BY HIS FRIEND. HE STATE HE IS NAUSEATED BY OUR FOOD. HE DOES DRINK THE ENSURES AND MILK. HE WILL TRY TO GET UP FROM HIS BED AND DOES NOT USE HIS CALL LIGHT ON A REGULAR BASIS. HE HAS RESTED MOST OF THE SHIFT AND STATES THAT HE WANTS TO GO HOME. DOCTOR HAS BEEN INFOMRED OF THIS. HE HAS HAD NO COMPLAINTS OF PAIN. HE REQUIRES O2 WHICH HE WILL REMOVE IF NOT REMINDED TO KEEP ON. NO OTHER CHANGES THIS SHIFT.
--- NOTE | 2018-10-17 19:49 | NUR ---
PATIENT FOUND TO BE SOB AT SHIFT CHANGE, OOB TO BRP VOIDED AND HAD A BM; BTB AND CHECKED SATURATION - 76% INCREASED O2 TO 5L NASAL CANNULA, SATURATON LEVEL INCREASED TO 88-90% PATIENT LUNG SOUNDS ARE COURSE CRACKLES THROUGH OUT. CALLED RT TO COME SEE THE PATIENT. note: SPOKE TO HIS [id number] MARS DAY [phone] SHE WOULD LIKE TO GET AN UPDATE FROM THE PATIENTS DR ON THURSDAY AT THE ABOVE NUMBER
--- NOTE | 2018-10-17 23:24 | NUR ---
Pt bed alarm went off, a nurse arrived before i did. pt was getting up out of bed, and was refusing our recommendation to wear oxygen, as we were trying to put the oxygen on him, he had agitation, and grabbed nurse's arm (in a twisting motion). I moved bedside table, so the nurse could move away from the area. As quickly as i moved the table ren moved and pressed staff assist. Pt alomst tried hitting both myself and the nurse, right after the wrist incident.
[2018-10-17 23:33] LABS: PCO2 Arterial 35.5 mmHg (35-45); PO2 Arterial 61.4 mmHg (80-100); pH Blood Arterial 7.46 (7.35-7.45)
--- NOTE | 2018-10-18 04:37 | NUR ---
2305; ENTERED PATIENT ROOM AND ANOTHER NURSE KELLY CAMPOS AND CHARGE WERE TRYING TO GE PATIENT BACK INTO BED; I APPROACHED THE PATIENT USUAL AND ATTEMPTED TCOAX PATIENT TO PUT HIS O2 BACK ON PATIENT SUDDENLY LASHED OUT AND SMACKED MY HAND/WRIST HARD. PATIENT NOT VERBALY RESPONSIVE. WITH HELP OF CHARGE ANGE AREVALO AND ISAIAH MENDOZA GOT PATIENT BACK INTO BED. CALLED RT. FURTHER ASSESSING CONDITION OF PATIENT, WHOSE SKIN WAS MOTTLING. IT WAS DECIDED TO CALL THE RAPID RESPONSE. BUCKET PUSHER EVER CAME IN. RT ERICK AND ERIC CAME IN. PATIENT WASS RESTRAINED 2ND TO HIS COMBATIVE BEHAVIOR AND RISK OF SELF INJURY. (23:30) ABG SHOWED MILD HYPOXIA. CPAP WAS STARTED. 23:45 DR BOND CAME IN TO CHECK PATIENT. CAME IN AND CHECKED PATIENT ([id number]) APPEARED. PATIENT MAKING FISTS AND KICKING AND LASHING OUT AT STAFF. PATIENT LOC UNKNOWN PATIENT BECAME NON VERBA;
[2018-10-18 05:11] LABS: BASOPHILS ABSOLUTE AUTO 0.07 K/mm3 (0.00-0.23); BASOPHILS PERCENT AUTO 0 % (0-2); EOSINOPHILS ABSOLUTE AUTO 0.26 K/mm3 (0.00-0.68); EOSINOPHILS PERCENT AUTO 1 % (0-6); Hematocrit 35.5 % (37.0-53.0); Hemoglobin 11.4 g/dL (13.5-17.5); IMMATURE GRAN ABSOLUTE AUTO 0.28 K/mm3 (0.00-0.10); IMMATURE GRAN PERCENT AUTO 2 % (0-1); LYMPHOCYTES ABSOLUTE AUTO 1.88 K/mm3 (0.84-5.20); LYMPHOCYTES PERCENT AUTO 10 % (21-46); MONOCYTES ABSOLUTE AUTO 1.57 K/mm3 (0.16-1.47); MONOCYTES PERCENT AUTO 8 % (4-13); Mean Corpuscular HGB 32.2 pg (26.0-34.0); Mean Corpuscular HGB Conc 32.1 g/dL (31.5-36.5); Mean Corpuscular Volume 100 fL (80-100); Mean Platelet Volume 10.4 fL (9.1-12.4); NEUTROPHILS PERCENT AUTO 79 % (41-73); Platelet Count 278 K/mm3 (150-400); RDW Coefficient Variation 13.2 % (11.7-14.2); RDW Standard Deviation 49.3 fL (35.1-46.3); Red Blood Cell Count 3.54 M/mm3 (4.30-5.90); White Blood Cell Count 19.06 K/mm3 (4.00-11.30)
[2018-10-18 11:21] LABS: Vancomycin, Trough 4.1 ug/mL (5.0-10.0)
--- NOTE | 2018-10-18 17:23 | NUR ---
SUMMARY PT SITTING UP IN THE CHAIR AT THE BEDSIDE, CHAIR ALARM ON FOR SAFETY, PT WAS IN 4 POINT SOFT RESTRAINTS FIRST THING THIS MORNING, PT TAKEN OFF CPAP AND PLACED ON 7L OXIMYZER, PT ABLE TO TELL ME WHO HE WAS AND WHERE HE WAS, ALSO ABLE TO STATE HE WAS HERE AFTER HAVING A HEART ATTACK, RESTRAINTS DC'D, PT CONT TO BE MOSTLY ORIENTED, FORGETS TO USE HIS CALL LIGHT, BED AND CHAIR ALARM ON FOR SAFETY, PT HAS BEEN COOPERATIVE WITH CARE, FRIEND HAS BEEN IN TO VISIT, VSS, NO ACUTE CHANGES, WILL CONT TO MONITOR
--- NOTE | 2018-10-19 00:55 | NUR ---
PT IN BILATERAL WRIST RESTRAINTS. RESPIRATIONS INCREASED, OXYGEN SATURATIONS DECREASED. CONTINUES TO BITE/TEAR OFF PULSE OXIMETER PROBE. RESPIRATORY THERAPIST CALLED. TRIED APPLYING C-PAP INSTEAD OF 10L OXIMIZER. PT DID NOT TOLERATE C-PAP. NOW TRYING HIGH FLOW MASK. PT IS CONFUSED AND YELLING OUT. THIS RN EXPLAINED TO PT WHY HE IS IN WRIST RESTRAINTS.
--- NOTE | 2018-10-19 03:56 | NUR ---
PATIENT REPORTED TO HAVE INCREASE IN SOB, AND RR. SUDDEN ONSET OF CHEST PAIN, PATIENT POINTED TO MIDDLE OF CHEST AND SAID IT WAS AN ACHING PAIN. PT IS NOW ON 15L OXIMIXER AT 91%. CALLED DR. BOND AT 0300 AND REPORTED NEW FINDINGS, ASKED THAT HE COME SEE THE PT. ORDERED A STAT CHEST XRAY AND EKG. OT ORDER FOR LASIX AND TO TRANSFER PT TO HIGHER LEVEL OF CARE FOR CONCERN THAT PATIENT IS GOING INTO ARDS.
--- NOTE | 2018-10-19 05:10 | NUR ---
Henry of Care: Report called from Medical Floor nurse Aleja. Patient arrived to unit at 0435hr via bed, accompanied by RN. Transferred to ICU via slider sheet. Appears drowsy, but awake, oriented to self, place, reason for admission/transferred to ICU. Denies pain, discomfort, SOB, or dyspnea at this time. O2-92-95% on 15L/ high flow NC. VSS, heart rhythm shows A-fib in the 80's-90's, BP stable. Lung sounds show fine crackles throughout. Plan to place patient on BiPAP mask as tolerated. Plan to contact hospitalist to request BMP and troponin. Voiding using urinal in bed. Wrist restraints removed as patient is calm/cooperative/oriented. Bed alarm in place for safety. Will continue monitor for pain, safety, comfort.
[2018-10-19 05:16] LABS: BASOPHILS ABSOLUTE AUTO 0.07 K/mm3 (0.00-0.23); BASOPHILS PERCENT AUTO 0 % (0-2); EOSINOPHILS ABSOLUTE AUTO 0.25 K/mm3 (0.00-0.68); EOSINOPHILS PERCENT AUTO 1 % (0-6); Hematocrit 34.2 % (37.0-53.0); Hemoglobin 11.2 g/dL (13.5-17.5); IMMATURE GRAN ABSOLUTE AUTO 0.35 K/mm3 (0.00-0.10); IMMATURE GRAN PERCENT AUTO 2 % (0-1); LYMPHOCYTES ABSOLUTE AUTO 1.26 K/mm3 (0.84-5.20); LYMPHOCYTES PERCENT AUTO 7 % (21-46); MONOCYTES ABSOLUTE AUTO 1.29 K/mm3 (0.16-1.47); MONOCYTES PERCENT AUTO 7 % (4-13); Mean Corpuscular HGB 32.5 pg (26.0-34.0); Mean Corpuscular HGB Conc 32.7 g/dL (31.5-36.5); Mean Corpuscular Volume 99 fL (80-100); Mean Platelet Volume 10.5 fL (9.1-12.4); NEUTROPHILS ABSOLUTE AUTO 16.05 K/mm3 (1.96-9.15); NEUTROPHILS PERCENT AUTO 83 % (41-73); NRBC ABSOLUTE 0.02 K/mm3 (0.00-0.02); NRBC Auto 0.1 /100 WBC (0.0-0.2); Platelet Count 306 K/mm3 (150-400); RDW Coefficient Variation 13.2 % (11.7-14.2); RDW Standard Deviation 47.9 fL (35.1-46.3); Red Blood Cell Count 3.45 M/mm3 (4.30-5.90); White Blood Cell Count 19.27 K/mm3 (4.00-11.30)
[2018-10-19 06:20] LABS: Anion Gap 5 mmol/L (6-16); Blood Urea Nitrogen 29 mg/dL (8-24); Bun/Creatinine Ratio 36.2 (12.0-20.0); CO2, Blood 28 mmol/L (21-32); Chloride, Blood 108 mmol/L (98-108); Glomerular Filtration Rate >60 (60-); Glucose, Blood 135 mg/dL (70-99); Potassium, Blood 4.3 mmol/L (3.5-5.5); Sodium, Blood 141 mmol/L (136-145)
--- NOTE | 2018-10-19 07:17 | NUR ---
Shift Summary: Report given to day shift RN Stefanie. Patient placed on BiPAP mask 15/10/50% FiO2, but intermittently pulled/picked at mask, also asking staff to remove mask. Placed back on 15L/high-flow NC, O2-92-96%, continues to deny dyspnea or SOB. Spoke with Dr. Nice who came to room shortly after mask removed. Dr. Nice did not wish to use prn Ativan at this time r/t concern for patient intermittent confusion/AMS he had recently on medical floor, and patient's O2% wnl on the high-flow NC. Patient became increasingly confused throughout remainder of shift, now confused to place/time, but remains calm/cooperative with staff. Several unmeasured voids and voids via urinal throughout remainder of shift.
--- NOTE | 2018-10-19 07:30 | NUR ---
ASSUMED CARE: PT IS CONFUSED, ORIENTED TO SELF KEEPS ASKING IF HE'S IN A RESTARAUNT AND IF HE CAN HAVE WATER. HE FOLLOWS INSTRUCTION BUT REQUIRES REORIENTING FREQUENTLY. NC AT 15L WITH HIGH FLOW TUBING. SATTING 96%. DENIES CHEST PAIN. NSR WITH OCCASIONAL IRREGULARITY. RESTING QUIETLY IN BED EATING BREAKFAST AT THIS TIME.
--- NOTE | 2018-10-19 08:28 | NUR ---
RN ENTERED ROOM TO FIND PT RIPPING OFF O2 PROBE. TRIED TO REDIRECT PT WHICH RESULTED IN PT YELLING AND CONTINUING TO REMOVED TELE LEADS. CALL FOR ASSISTANCE TO PLACE RESTRAINTS DUE TO PT CONTINUING TO PULL LINES, O2, AND LEADS OFF AND TRIED TO GET OUT OF BED, BECOMING MORE AGITATED IN THE PROCESS. PT ATTEMPTED TO PUNCH STAFF MEMBERS AND KICKING AND PULLING ARMS AWAY WHEN STAFF ATTEMPTED TO ASSIST HIM. SECURITY AND WILLOWER NOTIFIED. PT RESTRAINED IN 4 POINTS. SATURATION DROPPED INTO 80S WITH VERY SLOW RECOVERY TIME. BIPAP REPLACED, RT AWARE. AM MEDS HELD DUE TO NPO ON BIPAP AND AGITATION.
--- NOTE | 2018-10-19 08:47 | NUR ---
CALL TO DR HILLS ABOUT PT'S SITUATION. DR AWARE THAT RESTRAINTS WERE APPLIED WELL BIPAP AND THAT AM MEDS WERE HELD. ALSO AWARE THAT PT IS STILL PCU STATUS. DR HILLS AWARE THAT IT HAS BEEN REPORTED THAT PT WAS COUGHING UP BLOOD WHEN ON MEDICAL FLOOR. ASKED DR IF WE NEEDED ABG, CT TO R/O PE, OR PULMONOLOGY CONUSULT. DR AGREED TO PULMONOLOGY CONSULT, DR CAMARGO AWARE. REMAINS ON BIPAP AND FOUR POINT RESTRAINTS BUT VERY AGITATED
--- NOTE | 2018-10-19 10:09 | NUR ---
DR CAMARGO STATED PT NEEDED TO HAVE HIS PLAVIX SO NOT TO CLOT STENT. ATTEMPTED TO GIVE MEDICATIONS ORALLY WITH SIP OF WATER AND PT SPIT THEM OUT. PT BENT OVER IN BED AND MANAGED TO GET BIPAP MASK OFF. NC AT 10L AT THIS TIME, SATTING MID 90S. DR CAMARGO AWARE OF BEING UNABLE TO GIVE PLAVIX OR ORAL MEDS
[2018-10-19 11:02] LABS: Vancomycin, Trough 16.7 ug/mL (5.0-10.0)
[2018-10-19 11:04] LABS: Alanine Aminotransfer (ALT/SGP 531 U/L (12-78); Albumin/Globulin Ratio 0.5 (0.8-1.8); Alk Phos 189 U/L (50-136); Anion Gap 5 mmol/L (6-16); Aspartate Aminotrans (AST/SGOT 419 U/L (12-37); Bilirubin, Total 0.8 mg/dL (0.1-1.0); Blood Urea Nitrogen 27 mg/dL (8-24); Bun/Creatinine Ratio 29.4 (12.0-20.0); CO2, Blood 29 mmol/L (21-32); Calcium, Blood 8.1 mg/dL (8.5-10.1); Chloride, Blood 104 mmol/L (98-108); Creatinine, Blood 0.92 mg/dL (0.60-1.20); Glomerular Filtration Rate >60 (60-); Glucose, Blood 233 mg/dL (70-99); Magnesium, Blood 2.2 mg/dL (1.6-2.4); Phosphorus, Blood 1.4 mg/dL (2.5-4.9); Potassium, Blood 3.4 mmol/L (3.5-5.5); Sodium, Blood 138 mmol/L (136-145)
[2018-10-19 11:20] LABS: C-REACTIVE PROTEIN, EXT RANGE >19.000 mg/dL (0.000-0.300)
[2018-10-19 11:47] LABS: Adenovirus Not Detected (NOT DETECT); Bordetella pertussis Not Detected (NOT DETECT); Chlamydophila pneumoniae Not Detected (NOT DETECT); Coronavirus 229E Not Detected (NOT DETECT); Coronavirus HKU1 Not Detected (NOT DETECT); Coronavirus NL63 Not Detected (NOT DETECT); Coronavirus OC43 Not Detected (NOT DETECT); Human Metapneumovirus Not Detected (NOT DETECT); Human Rhinovirus/Enterovirus Not Detected (NOT DETECT); Influenza A Not Detected (NOT DETECT); Influenza A/2009-H1 Not Detected (NOT DETECT); Influenza A/H1 Not Detected (NOT DETECT); Influenza A/H3 Not Detected (NOT DETECT); Influenza B Not Detected (NOT DETECT); Mycoplasma pneumoniae Not Detected (NOT DETECT); Parainfluenza Virus 1 Not Detected (NOT DETECT); Parainfluenza Virus 2 Not Detected (NOT DETECT); Parainfluenza Virus 3 Not Detected (NOT DETECT); Parainfluenza Virus 4 Not Detected (NOT DETECT); Respiratory Syncytial Virus Not Detected (NOT DETECT)
--- NOTE | 2018-10-19 14:00 | NUR ---
PT'S BP CONTINUES TO DROP DESPITE PRECEDX LEVEL DECREASED. DISCUSSED WITH DR CAMARGO WHO INSTRUCTS TO TURN OF PRECEDEX FOR NOW.
--- NOTE | 2018-10-19 15:38 | NUR ---
PT RESTING QUIETLY AT THIS TIME. BP INCREASING SLOWLY BUT REMAINS HYPOTENSIVE. FOUR POINT RESTRAINTS REMAIN DUE TO AGITATION WHEN ROUSING BUT APPEARS TO BE RESTING COMFORTABLY AT THIS TIME.
--- NOTE | 2018-10-19 16:07 | NUR ---
WHILE PERFORMING ORAL CARE, PINK PARTICLES NOTED FROM PLAVIX THAT RN THOUGHT PT SPIT OUT. APPEARS PT MAY HAVE RECEIVED SOME OF IT
[2018-10-19 20:19] LABS: Stool Occult Blood Guaiac 1 Pos (Neg)
--- NOTE | 2018-10-19 20:30 | NUR ---
ASSUMED PT CARE AT 1915 PT RESTING IN BED WITH BIPAP IN PLACE; PRESSURE 15/10 WITH FIO2 35%. PT APPEARS ALERT AND ORIENTED TO PERSON, PLACE, TIME, AND SITUATION; HOWEVER, PER REPORT PT IS CONFUSED AND FORGETFUL AT TIMES. BILATERAL SOFT WRIST RESTRAINTS NOTED SECONDARY TO PT BEING AGITATED AND COMBATIVE TOWARD STAFF. PT PLEASANT AND COOPERATIVE; THEREFORE, RESTRAINTS REMOVED AT 1999. PT STATED HE WAS "WET" AND NEEDED TO BE CHANGED; BRIEF WAS SOAKED. EL CARE PERFORMED AND PT STATED HE NEEDED TO HAVE A BM; PLACED ON BEDPAN. MEDIUM BLACK, TARRY STOOL NOTED; SENT OCCULT STOOL TO LAB. LUNG SOUNDS ARE CLEAR T/O WITH TACHYPNEA NOTED. PT BECOMES VERY SOB DURING ANY ACTIVITY; OXYGEN SATURATIONS MAINTAINED GREATER THAN 92% WITH BIPAP IN PLACE. CALL LIGHT IN REACH; PT REMINDED HOW TO CALL FOR ASSISTANCE; DEMONSTRATED UNDERSTANDING.
--- NOTE | 2018-10-19 20:39 | NUR ---
CALL PLACED TO DR. CAMARGO UPDATED REGARDING POSTIVE OCCULT STOOL. NO NEW ORDERS.
--- NOTE | 2018-10-20 00:41 | NUR ---
PT VERY AGITATED. HITTING THE SIDE OF THE RAILS. PULLING ON BILATERAL SOFT WRIST RESTRAINTS. CURSING AT STAFF AND MUMBLING INCOHERENTLY. HYGIENE NEEDS HAVE BEEN MET; ATTEND IS DRY. PT UNABLE TO MAKE NEEDS KNOWN. BEEN VERY RESTLESS. CALLED DR. BOND IN REGARDS TO AGITATION; NEW ORDERS FOR ZYPREXA 5MG IV NOW.
[2018-10-20 03:38] LABS: BASOPHILS ABSOLUTE AUTO 0.02 K/mm3 (0.00-0.23); BASOPHILS PERCENT AUTO 0 % (0-2); EOSINOPHILS PERCENT AUTO 0 % (0-6); Hematocrit 28.8 % (37.0-53.0); Hemoglobin 9.4 g/dL (13.5-17.5); IMMATURE GRAN ABSOLUTE AUTO 0.27 K/mm3 (0.00-0.10); IMMATURE GRAN PERCENT AUTO 1 % (0-1); LYMPHOCYTES ABSOLUTE AUTO 0.63 K/mm3 (0.84-5.20); LYMPHOCYTES PERCENT AUTO 3 % (21-46); MONOCYTES ABSOLUTE AUTO 0.46 K/mm3 (0.16-1.47); MONOCYTES PERCENT AUTO 2 % (4-13); Mean Corpuscular HGB 31.9 pg (26.0-34.0); Mean Corpuscular HGB Conc 32.6 g/dL (31.5-36.5); Mean Corpuscular Volume 98 fL (80-100); Mean Platelet Volume 10.6 fL (9.1-12.4); NEUTROPHILS ABSOLUTE AUTO 20.26 K/mm3 (1.96-9.15); NEUTROPHILS PERCENT AUTO 94 % (41-73); NRBC ABSOLUTE 0.03 K/mm3 (0.00-0.02); NRBC Auto 0.1 /100 WBC (0.0-0.2); Platelet Count 236 K/mm3 (150-400); RDW Coefficient Variation 13.2 % (11.7-14.2); RDW Standard Deviation 46.9 fL (35.1-46.3); Red Blood Cell Count 2.95 M/mm3 (4.30-5.90); White Blood Cell Count 21.64 K/mm3 (4.00-11.30)
[2018-10-20 03:59] LABS: Alanine Aminotransfer (ALT/SGP 432 U/L (12-78); Albumin, Blood 1.8 g/dL (3.4-5.0); Albumin/Globulin Ratio 0.5 (0.8-1.8); Alk Phos 171 U/L (50-136); Anion Gap 4 mmol/L (6-16); Aspartate Aminotrans (AST/SGOT 304 U/L (12-37); Bilirubin, Total 0.8 mg/dL (0.1-1.0); Blood Urea Nitrogen 37 mg/dL (8-24); CO2, Blood 29 mmol/L (21-32); Calcium, Blood 7.9 mg/dL (8.5-10.1); Chloride, Blood 108 mmol/L (98-108); Creatinine, Blood 0.88 mg/dL (0.60-1.20); Globulin, Blood 3.6 g/dL (2.2-4.0); Glomerular Filtration Rate >60 (60-); Glucose, Blood 173 mg/dL (70-99); Magnesium, Blood 2.5 mg/dL (1.6-2.4); Phosphorus, Blood 2.7 mg/dL (2.5-4.9); Potassium, Blood 3.9 mmol/L (3.5-5.5); Sodium, Blood 141 mmol/L (136-145); Total Protein, Blood 5.4 g/dL (6.4-8.2)
--- NOTE | 2018-10-20 05:50 | NUR ---
END OF SHIFT SUMMARY PT VERY LABILE WITH MOOD AND AGITATION. THE NIGHT PROGRESSED PT BECAME MORE AGITATED AND MORE COMBATIVE. PT ABLE TO TALK DOWN EASY; HOWEVER, BILATERAL SOFT WRIST RESTRAINTS HAD TO REMAIN IN PLACE D/T PT'S BEHAVIOR. EVEN WITH RESTRAINTS IN PLACE PT WAS HITTING THE SIDES OF THE RAILS. ONE TIME ORDER RECEIVED FOR ZYPREXA THAT RELIEVED SOME WHAT OF THE PT'S AGITATION; UNABLE TO RESTART PRECEDEX D/T PT'S BLOOD PRESSURES BEING ON THE LOWER END. PT IS VERY CONFUSED AT THIS TIME COMPARED TO START OF SHIFT. BIPAP REMAINED IN PLACE ALL NIGHT WITH PRESSURES 15/10; FIO2 35%; ORAL CARE PERFORMED. DR. CAMARGO AWARE OF BLACK, TARRY STOOL THAT WAS POSITIVE GUAIAC; NO NEW ORDERS AND VS HAVE BEEN STABLE; HOWEVER, HGB IS TRENDING DOWN. CALL LIGHT IS WITHIN REACH. PT DOES NOT APPEAR TO BE IN ANY DISTRESS AT THIS TIME.
--- NOTE | 2018-10-20 07:08 | NUR ---
ASSUMED CARE: PT WEARING BIPAP AT THIS TIME. SETTINGS 15/10 WITH 35% FIO2. BILATERAL WRIST RESTRAINTS IN PLACE DUE TO CONFUSION AND AGITATION REPORTED BY TUMBLING AND ROLLING SUPERVISOR. RESTING QUIETLY AT THIS TIME. NO ACUTE DISTRESS NOTED. RT HAS BEEN IN TO SEE PT THIS AM
--- NOTE | 2018-10-20 09:31 | NUR ---
ENGINE DISPATCHER RN REPORTED BLOODY STOOL. DISCUSSED WITH DR CAMARGO WHO INSTRUCTED TO GIVE PLAVIX AND ASPIRIN TO PT. PT TOOK WITHOUT ISSUE THIS AM AND WAS AGREEABLE
[2018-10-20 11:38] LABS: Vancomycin, Trough 17.1 ug/mL (5.0-10.0)
--- NOTE | 2018-10-20 14:15 | NUR ---
PT HAD LONG BREAK FROM BIPAP THIS AFTERNOON, FOR ABOUT 3 HOURS. TOLERATED WELL ON 8L. WORKED WITH OT. HE AMBULATED AND WAS MORE PHYSICALLY ACTIVE IT STARTED TAKING HIM LONGER TO RECOVER AND KEEP FROM DESATURATING. BIPAP PLACED. PT ATTEMPTED TO TAKE OFF AFTER AN HOUR AND THIS RN WATCHED TO SEE IF HE COULD MAINTAIN SATS WITH NC, HAD TO INCREASE O2 TO 12 IN ORDER TO DO THIS. PT BACK ON BIPAP AT THIS TIME. PT INSTRUCTED THAT MASK IS NEEDED AT THIS TIME.
--- NOTE | 2018-10-20 15:28 | NUR ---
DR HILLS HERE TO SEE PT. AWARE THAT PT HAS HAD TWO BLACK TARRY STOOL SINCE YESTERDAY. AWARE THAT LOVENOX STILL ORDERD FOR PT. AWARE THAT PT APPEARED TO BE ING LAST NIGHT AND SEROQUEL HELPED. AT BEDSIDE WITH PT AT THIS TIME.
--- NOTE | 2018-10-20 17:57 | NUR ---
SHIFT SUMMARY: PT HAS BEEN CONFUSED THROUGHOUT DAY BUT PLEASANT AND REDIRECTABLE. HAS BEEN OUT OF RESTRAINTS SINCE 1025. PRECEDEX HAS BEEN OFF SINCE CITY CONTROLLER. PT HAS BEEN ALTERNATING BETWEEN NC AT 10-12L AND BIPAP AT 15/10 WITH 35-40% FIO2. DISCUSSED PT'S "OWNING" BEHAVIOR WITH DR HILLS SO HE IS AWARE. DRS AWARE THAT PT HAS HAD 2 BLACK TARRY STOOL SINCE LAST NIGHT. DC'D LOVENOX BUT ORDERS TO CONTINUE PLAVIX. PT CURRENTLY SITTING IN RECLINER WITH NC ON AT 12L. CONTINUING TO REORIENT DUE TO CONFUSION THAT INCREASED AT 1530
--- NOTE | 2018-10-20 19:36 | NUR ---
ASSUMED PT CARE AT 1915 PT SITTING UP IN BED WITH BIPAP MASK IN PLACE; 15/10 WITH FIO2 40%; OXYGEN SATURATIONS 86-90%; PT RECOVERING FROM EXERTION SECONDARY TO BEING TRANSFERRED BACK TO BED FROM RECLINER. PT IS ALERT AND ORIENTED TO PERSON, PLACE, TIME, AND SITUATION; CONFUSED AND FORGETFUL AT TIMES, BUT ABLE TO REORIENT AND REDIRECT. LUNG SOUNDS ARE CLEAR T/O WITH SOB WITH ANY ACTIVITY. PT ABLE TO PERFORM OWN ORAL CARE AND REPOSITION HIMSELF. NOTED TO BE RESTLESS AT TIMES WITH VISUAL HALLUCINATIONS NOTED REGARDING HIS "GLASSES BEING RAN OVER" AND BELIEVING THAT THE BIPAP MACHINE WAS THE "THING THAT RAN THEM OVER". FAMILY AT BEDSIDE CURRENTLY. FAMILY STATES THAT PT HASN'T BEEN NOTED TO BE THIS CONFUSED AT BASELINE. PT CONTINUING TO REMOVE BIPAP MASK AND TAKES A WHILE TO RECOVER ONCE OXYGEN SATURATIONS DECREASE TO MID 80'S. WILL CONTINUE TO MONITOR BEHAVIOR AND REDIRECT ACCORDINGLY.
--- NOTE | 2018-10-20 21:42 | NUR ---
PT CONTINUES WITH RESTLESSNESS, AGITATION, AND VISUAL HALLUCINATIONS. CONTINUES TO PULL OFF BIPAP MASK AND DISROBING. CALLED ASHLYN MCFARLAND. UPDATED REGARDING ALL INTERVENTIONS TRIED LAST NIGHT IN REGARDS TO ZYPREXA AND RESTRAINTS; NEW ORDERS FOR HALIDOL 2MG IV NOW, WELL ORDERS FOR RESTRAINTS TO BILATERAL WRIST IF PT CONTINUES TAKING OFF BIPAP MASK.
--- NOTE | 2018-10-20 22:32 | NUR ---
BEENA UNEFFECTIVE; CALLED ASHLYN MCFARLAND TO UPDATE REGARDING PT BEING MORE AGITATED, BANGING ON SIDERAILS WITH HANDS, YELLING/SCREAMING AT STAFF, GRABBING AT STAFF, WELL RESP RATE INCREASING TO 40-50'S, HR INCREASED FROM 80'S TO 103, AND SBP 110'S TO 130. NEW ORDERS TO 50MG IV BENADRYL NOW.
--- NOTE | 2018-10-20 23:15 | NUR ---
SPOKE WITH ASHLYN MCFARLAND REGARDING HALIDOL AND BENADRYL BEING UNEFFECTIVE. UPDATED REGARDING PT BEING IN RESTRAINTS, WELL VISUAL HALLUCINATIONS AND RESP RATE CONTINUING IN THE 50-60'S WITH HR >100. BARTOLO STATED TO CALL AND UPDATE DR. CAMARGO.
--- NOTE | 2018-10-20 23:20 | NUR ---
DR. CAMARGO UPDATED REGARDING PT'S BEHAVIORS. NEW ORDERS TO RESTART PRECEDEX GTT. INFORMED DR. CAMARGO REGARDING PRECEDEX DECREASING BLOOD PRESSURES YESTERDAY; ORDERS TO RESTART D/T HOW BP'S ARE CURRENTLY.
--- NOTE | 2018-10-21 | NUR ---
ASHLYN MCFARLAND CALLED BACK FOR AN UPDATE REGARDING WHAT DR. CAMARGO HAD ADVISED. NEW ORDERS FOR ATIVAN 1MG IV X1 DOSE TO SEE IF IT WOULD BE EFFECTIVE.
--- NOTE | 2018-10-21 00:31 | NUR ---
ATIVAN UNEFFECTIVE; PRECEDEX GTT STARTED AT 0015 AT 0.7MCG/KG/HR, WHICH IS ALSO UNEFFECTIVE. RESP RATE STILL CONTINUES AT 40-50'S. WILL INCREASE PRECEDEX GTT.
--- NOTE | 2018-10-21 02:36 | NUR ---
PLACED CALL TO DR. BOND REGARDING PT BEING MAXED OUT ON PRECEDEX GTT OF 1.4MCG/KG/HR AND PT STILL HAVING A RESP RATE 40-50. NEW ORDERS FOR STAT ABG AND 1MG OF ATIVAN IV X1 DOSE. CALL WITH RESULTS TO ABG.
[2018-10-21 02:49] LABS: PCO2 Arterial 37.3 mmHg (35-45); PO2 Arterial 62.6 mmHg (80-100); pH Blood Arterial 7.45 (7.35-7.45)
--- NOTE | 2018-10-21 03:01 | NUR ---
UPDATED DR. BOND REGARDING ABG RESULTS; NEW ORDERS TO PLACE PT ON AIRVO, WELL NEW ORDERS FOR ATIVAN 1-2MG IV Q4HRS PRN AGITATION.
[2018-10-21 03:31] LABS: BASOPHILS ABSOLUTE AUTO 0.04 K/mm3 (0.00-0.23); BASOPHILS PERCENT AUTO 0 % (0-2); EOSINOPHILS PERCENT AUTO 0 % (0-6); Hematocrit 27.6 % (37.0-53.0); Hemoglobin 8.9 g/dL (13.5-17.5); IMMATURE GRAN ABSOLUTE AUTO 0.76 K/mm3 (0.00-0.10); IMMATURE GRAN PERCENT AUTO 3 % (0-1); LYMPHOCYTES ABSOLUTE AUTO 0.47 K/mm3 (0.84-5.20); LYMPHOCYTES PERCENT AUTO 2 % (21-46); MONOCYTES ABSOLUTE AUTO 1.08 K/mm3 (0.16-1.47); MONOCYTES PERCENT AUTO 4 % (4-13); Mean Corpuscular HGB 31.3 pg (26.0-34.0); Mean Corpuscular HGB Conc 32.2 g/dL (31.5-36.5); Mean Corpuscular Volume 97 fL (80-100); Mean Platelet Volume 10.5 fL (9.1-12.4); NEUTROPHILS ABSOLUTE AUTO 23.51 K/mm3 (1.96-9.15); NEUTROPHILS PERCENT AUTO 91 % (41-73); NRBC ABSOLUTE 0.07 K/mm3 (0.00-0.02); NRBC Auto 0.3 /100 WBC (0.0-0.2); Platelet Count 179 K/mm3 (150-400); RDW Coefficient Variation 13.3 % (11.7-14.2); RDW Standard Deviation 47.9 fL (35.1-46.3); Red Blood Cell Count 2.84 M/mm3 (4.30-5.90); White Blood Cell Count 25.86 K/mm3 (4.00-11.30)
[2018-10-21 03:54] LABS: Alanine Aminotransfer (ALT/SGP 574 U/L (12-78); Albumin, Blood 1.7 g/dL (3.4-5.0); Albumin/Globulin Ratio 0.5 (0.8-1.8); Alk Phos 225 U/L (50-136); Anion Gap 4 mmol/L (6-16); Aspartate Aminotrans (AST/SGOT 434 U/L (12-37); Bilirubin, Total 1.1 mg/dL (0.1-1.0); Blood Urea Nitrogen 52 mg/dL (8-24); Bun/Creatinine Ratio 53.6 (12.0-20.0); CO2, Blood 27 mmol/L (21-32); Calcium, Blood 7.7 mg/dL (8.5-10.1); Chloride, Blood 112 mmol/L (98-108); Creatinine, Blood 0.97 mg/dL (0.60-1.20); Globulin, Blood 3.3 g/dL (2.2-4.0); Glomerular Filtration Rate >60 (60-); Glucose, Blood 170 mg/dL (70-99); Potassium, Blood 4.4 mmol/L (3.5-5.5); Sodium, Blood 143 mmol/L (136-145)
--- NOTE | 2018-10-21 05:59 | NUR ---
END OF SHIFT SUMMARY PT CONTINUED WITH BOUTS OF AGITATION AND RESTLESSNESS EVEN WITH PRECEDEX GTT ON WITH ANY SORT OF STIMULATION. PT ATTEMPTS TO REMOVE BIPAP MASK AT EVERY OPPORTUNITY AND HAS SUCH A STRONG INSIDE SALES RECRUITER WON'T LET GO OF MEDICAL EQUIPMENT. PT HAS GRABBED STAFF, WELL ATTEMPTED TO KICK AND SWING AT THEM; THEREFORE, PT WAS PLACED IN BILATERAL SOFT WRIST RESTRAINTS SECONDARY TO COMBATIVENESS AND PULLING AT TUBES/LINES. BREAKS WITH BIPAP MASK HAVE BEEN ATTEMTPED MULTIPLE TIMES T/O SHIFT; HOWEVER, PT QUICKLY DROPS OXYGEN SATURATIONS TO 60-70'S WITH A LONG RECOVERY ONCE BIPAP MASK IS PLACED BACK ON. RECEIVED ORDERS FOR THE AIRVO, WHICH WAS ATTEMPTED ON LAST ROUNDS AND PT STILL WASN'T ABLE TO MAINTAIN OXYGEN SATURATIONS. BIPAP HAS REMAINED AT 15/10 WITH FIO2 NEEDING TO BE INCREASED TO 50%. LUNG SOUNDS ARE CLEAR T/O, EXCEPT TO LLL HAS NOTED CRACKLES. PT IS INCONTINENT OF BLADDER; THEREFORE, NOT ABLE TO MAINTAIN STRICT I&O'S. PT WAS ALERT AND ORIENTED TO PERSON, PLACE, TIME, AND SITUATION AT BEGINNING OF SHIFT AND BY 2200 PT WAS COMBATIVE, AGITATED, AND SEVERELY CONFUSED WITH RESP RATE GETTING HIGH 60 AND HR HIGH 107. ATIVAN AND PRECEDEX APPEAR TO BE EFFECTIVE FOR PT'S AGITATION/RESTLESSNESS. WILL CONTINUE TO MONITOR UNTIL REPORT IS HANDED OFF TO ONCOMING RN.
--- NOTE | 2018-10-21 07:14 | NUR ---
ASSUMED CARE: PT APPEARS TO BE ASLEEP AT THIS TIME. BIPAP IN PLACE, 15/5 AT 50% FIO2. PRECEDEX GTT RUNNING AT 0.3 MCG/KG/MIN. PT SATTING 95% ON THIS WITH HR IN 50S-60S. NO ACUTE NEEDS AT THIS TIME.
--- NOTE | 2018-10-21 07:42 | NUR ---
PT APPEARS TO BE SLEEPING AT THIS TIME. PRECEDEX OFF TO GIVE SEDATION VACATION. RT CAME TO SEE PT, BIPAP STILL IN PLACE, SETTINGS REMAIN 15/10 50% FIO2. NO ACUTE DISTRESS AT THIS TIME. BILATERAL WRIST RESTRAINTS
--- NOTE | 2018-10-21 08:42 | NUR ---
PRECEDEX OFF. TURNED ON LIGHTS AND OPENED BLINDS TO SEE IF PT WOULD WAKE UP. SAID HIS NAME AND HE SAYS "YEAH" OR "HMM" BUT DOES NOT OPEN EYES OR RESPOND TO FURTHER QUESTIONS. WILL CONTINUE TO ATTEMPT TO WAKE UP FURTHER PRIOR TO ADMINISTERING AM MEDS
--- NOTE | 2018-10-21 09:50 | NUR ---
PT CONTINUES TO SLEEP HEAVILY. RESPONDS TO NAME BUT DOES NOT OPEN EYES OR FOLLOW INSTRUCTIONS
--- NOTE | 2018-10-21 09:57 | NUR ---
ATTEMPTED TO ASSESS PT FOR SECOND IV SITE. PT STRUGGLED AGAINST RESTRAINT AND FISTED FINGERS, ALSO ATTEMPTED TO PINCH STAFF. PT DIGGING ELBOW INTO BED SO STAFF IS UNABLE TO GET TOURNIQUET ON. ATTEMPTED TO REORIENT BUT PT MUMBLES AND DOES NOT OPEN EYES.
--- NOTE | 2018-10-21 10:01 | NUR ---
INSTRUCTED BY THRESHING OPERATOR TO JUST USE 1 IV AT THIS TIME SINCE MEDS ARE COMPATIBLE AND PT IS FIGHTING STAFF WITH ATTEMPTS. WILL DISCUSS PT WITH DR GOMES
--- NOTE | 2018-10-21 10:45 | NUR ---
REPOSITIONED PT AND GAVE BATH AND HE BECAME VERY AGITATED, GRABBING AT STAFF. RESPIRATORY RATE INTO 50S-60S. RT AT BEDSIDE, FIO2 TURNED UP TO 55%. PRECEDEX RESTARTED AT 0.3 MG/KG/MIN. PT CONTINUED WITH RAPID RESPIRATIONS AND BP ELEVATED. PRECEDEX INCREASED TO 0.7 MCG/MG/MIN. NEEDLE PROCESS FELT GOODS SUPERVISOR AWARE. WILL MAKE DR GOMES AWARE
--- NOTE | 2018-10-21 11:01 | NUR ---
FIO2 INCREASED TO 60%. RR IN 40S-50S
[2018-10-21 11:23] LABS: PCO2 Arterial 36.7 mmHg (35-45); PO2 Arterial 59.1 mmHg (80-100); pH Blood Arterial 7.43 (7.35-7.45)
--- NOTE | 2018-10-21 12:18 | NUR ---
DR GOMES AWARE OF PT'S STATUS. AWARE THAT RN WAS UNABLE TO GIVE ORAL MEDICATIONS. DR GOMES ORDERED ABG AND LACTIC ACID DUE TO RN REPORTING RESPIRATORY STATUS AND INCREASED WORK OF BREATHING AND INCREASED FIO2 TO MAINTAIN STATS. AWARE OF LAB RESULTS. AWAITING NEW ORDERS.
--- NOTE | 2018-10-21 13:20 | NUR ---
INTUBATION: DR GOMES CAME TO SEE PT AND DECIDED FOR INTUBATION DUE TO PT'S LABS AND INCREASED WORK OF BREATHING. DR GOMES CALLED PT'S SON CATRINA TO OBTAIN CONSENT. TIME OUT PERFORMED AT [address] GOMES, GEOSPATIAL APPLICATIONS DEVELOPER, THIS RN, RT AND SECOND ASSISTING RN. 10 MG ATOMIDATE AND 10 MG ROCURONIUM ADMINISTERED AT 1251. AT 1253 ANOTHER 10 MG ATOMIDATE GIVEN. 1254 TUBE IN AND VERIFIED WITH SENSOR; SIZE 8.0 AT 24 AT THE LIP. PT'S DAUGHTER IN LAW CALLED SHORTLY AFTER AND WAS GIVEN AN UPDATE WELL. PT CURRENTLY ON VENT SETTINGS AC 12/450/ 100%/8.
--- NOTE | 2018-10-21 14:28 | NUR ---
DR GOMES TOLD POSTAL SERVICE WINDOW CLERK THAT SHE WANTED A PICC LINE FOR PT WHEN PICC NURSE AVAILABLE.
[2018-10-21 16:24] LABS: Base Excess Venous -2.3 mmol/L; Bicarbonate Venous 22.8 mmol/L (24.0-30.0); PO2 Venous 132 mmHg (38-42)
--- NOTE | 2018-10-21 18:06 | NUR ---
SHIFT SUMMARY: PT WAS INTUBATED THIS SHIFT. AC 12/450/8/80%. PROPOFOL AT 20MCG/KG/MIN. FAMILY HAS BEEN UPDATED TO PT'S STATUS. BATON TWIRLER AWARE THAT PT NEEDS PICC LINE BUT PICC NURSE UNAVAILABLE AT THIS TIME. PLAN IS TO GIVE PT A FEW DAYS ON VENT TO SEE IF RESPIRATORY STATUS IMPROVES. CRABTREE AND OG TUBES IN PLACE. NO FURTHER NEEDS AT THIS TIME
--- NOTE | 2018-10-21 19:15 | NUR ---
ASSUMED PT CARE PT INTUBATED AND SEDATED. PROPOFOL AT 20MCG/KG/MIN. VENT SETTINGS AC 12, TV 450, PEEP 8, FIO2 80%; O2 SATS 90%. PT HAS NOTED TRACHEAL DEVIATION TO LEFT SIDE, WHICH REPORTING OFF RN STATED PHYSICIAN WAS AWARE. LUNG SOUNDS ARE CLEAR T/O TO ALL LOBES. BLOOD NOTED TO ETT SUCTION, WELL ORAL SUCTION CANNISTER. VS APPEAR STABLE WITH TEMP ELEVATED AT 99.0. HR 80-90'S; SBP 100-120'S. RR 30'S. OG HAS CONTINUES TUBE FEEDINGS OF PIVOT 1.5 INFUSING AT 25MLS/HR WITH GOAL OF 40MLS/HR. TEMP CRABTREE IS PATENT AND DRAINING DARK AND CLOUDY, AMBERED COLORED URINE TO GRAVITY. PT REMAINS PALE WITH WARM SKIN NOTED TO THE TOUCH TO ALL EXTREMITIES. BILATERAL SOFT WRIST RESTRAINTS REMAIN IN PLACE. NO FAMILY AT BEDSIDE AT THIS TIME.
--- NOTE | 2018-10-21 20:12 | NUR ---
PLACED CALL TO DR. GOMES REGARDING PT'S OG RESIDUAL OF DARK, BROWN CONTENTS, WELL POSITIVE OCCULT STOOL FROM 10/19 AND TRENDING DOWN HGB. NEW ORDERS TO HOLD OFF ON TF FOR NOW, D/C PEPCID, AND START PROTONIX 40MG IV BID. DR. GOMES TO ASSESS HGB IN AM AND DETERMINE IF GI CONSULT IS NEEDED.
--- NOTE | 2018-10-21 20:25 | NUR ---
PLACED CALL TO DR. GOMES D/T WORSENING LEFT SIDED TRACHEAL DEVIATION. OXYGEN SATURATIONS DECLINING TO 87% WITH PEEP 8 AND FIO2 80%; INCREASED TO FIO2 90% WITH OXYGEN SATURATIONS INCREASING TO 90%. ORDERS FOR STAT CXR.
--- NOTE | 2018-10-21 21:42 | NUR ---
SPOKE WITH DR. GOMES REGARDING CXR RESULTS.
[2018-10-22 04:02] LABS: BASOPHILS ABSOLUTE AUTO 0.05 K/mm3 (0.00-0.23); BASOPHILS PERCENT AUTO 0 % (0-2); EOSINOPHILS PERCENT AUTO 0 % (0-6); Hematocrit 29.7 % (37.0-53.0); Hemoglobin 9.2 g/dL (13.5-17.5); IMMATURE GRAN ABSOLUTE AUTO 1.17 K/mm3 (0.00-0.10); IMMATURE GRAN PERCENT AUTO 4 % (0-1); LYMPHOCYTES ABSOLUTE AUTO 0.48 K/mm3 (0.84-5.20); LYMPHOCYTES PERCENT AUTO 2 % (21-46); MONOCYTES PERCENT AUTO 3 % (4-13); Mean Corpuscular HGB 31.5 pg (26.0-34.0); NEUTROPHILS ABSOLUTE AUTO 28.07 K/mm3 (1.96-9.15); NEUTROPHILS PERCENT AUTO 92 % (41-73); NRBC ABSOLUTE 0.23 K/mm3 (0.00-0.02); NRBC Auto 0.7 /100 WBC (0.0-0.2); Platelet Count 81 K/mm3 (150-400); RDW Coefficient Variation 14.5 % (11.7-14.2); RDW Standard Deviation 54.4 fL (35.1-46.3); Red Blood Cell Count 2.92 M/mm3 (4.30-5.90); White Blood Cell Count 30.67 K/mm3 (4.00-11.30)
[2018-10-22 04:06] LABS: Mean Corpuscular Volume 102 fL (80-100)
[2018-10-22 04:18] LABS: Magnesium, Blood 3.1 mg/dL (1.6-2.4)
--- NOTE | 2018-10-22 05:49 | NUR ---
END OF SHIFT SUMMARY NO SIGNIFICANT CHANGES T/O NIGHT. PT REMAINS INTUBATED AND SEDATED. VENT SETTINGS AC 12, TV 450, PEEP 8, FIO2 55% WITH OXYGEN SATURATIONS 97%. SCANT AMOUNT OF BLOODY SPUTUM SUCTIONED FROM ETT. COPIOUS AMOUNTS OF BLOODY, THICK ORAL SECRETIONS HAVE BEEN SUCTIONED WELL. PROPOFOL REMAINS AT 20MCG/KG/MIN WITH SBP 80-90'S AND MAP >60. RR 30'S. TUBE FEEDING HAS REMAINED OFF SINCE APPROXIMATELY [address] GOMES. TEMAkshat CRABTREE HAS REMAINED PATENT AND DRAINING TO GRAVITY. BILATERAL WRIST RESTRAINTS REMAIN IN PLACE. PT APPEARS COMFORTABLE AT THIS TIME.
--- NOTE | 2018-10-22 07:30 | NUR ---
ASSUMED CARE OF PATIENT; SEE ASSESSMENT CHARTING FOR DETAILS. PATIENT SEDATED WITH PROPOFOL DRIP AT 20MCG/KG/MIN; RIKERS SCALE ABOUT 3. INTUBATED WITH VENT. SETTINGS: A/C 12, TV 450, PEEP 8 AND FIO2 55%.. BIOX. LOW TO MID 90'S. OGT WITHOUT RESIDUALS AT THIS TIME. TUBE FEEDING HAS BEEN ON HOLD D/T CONCERN FOR GI BLEED ( PREVIOUS RESIDUALS WERE WITH ABOUT 150 ML BLOODY FLUID; NO RESIDUAL AT PRESENT; WILL GIVE AM MEDS. BUT CHECK WITH CARTOGRAPHIC AIDE RE: RESUMING TUBE FEEDS. CRABTREE TO GRAVITY AND DRAINING MODERATE AMOUNTS OF STRAW COLORED URINE; VSS; LOW GRADE FEVER OFF 99.3 (CORE TEMP.). BILAT. SOFT WRIST RESTRAINTS IN PLACE TO PREVENT SELF EXTUBATION. SPOKE TO PATIENTS' DNL, LIV, CALLED TO CHECK ON PATIENTS' STATUS; UPDATE GIVEN. TO HAVE PICC LINE PLACED, SOMETIME THIS AM TO HELP WITH BLOOD DRAWS, IV MANAGEMENT ISSUES AND POTENTIAL FOR NEED OF PRESSORS. RE:
--- NOTE | 2018-10-22 09:15 | NUR ---
PICC NURSE, BEBE, CAME IN ON HER DAYOFF TO PLACE PICC LINE ON PATIENT.
--- NOTE | 2018-10-22 09:30 | NUR ---
FIO2 REDUCED TO 45% BY Ab BAUTISTA
--- NOTE | 2018-10-22 10:30 | NUR ---
DR. GOMES HERE TO EVAL. PATIENT; INCREASED TV TO 480. ALSO, REQUESTS R.T. ADVANCE ETT 2CM AND TO EXCORT NURSING STAFF WHEN PATIENT GOING TO CT SCAN OF CHEST. RN SPOKE TO R.T. AND C.T. TECH.; DETERMINED CT SCAN WILL BE DONE AROUND 1330.
--- NOTE | 2018-10-22 11:00 | NUR ---
LAB HERE; ALLYSONO TROUGH DRAWN BY RN FROM PICC LINE.
--- NOTE | 2018-10-22 11:45 | NUR ---
ETT TUBE ADVANCED 2CM BY Ab SOTO); RN ASSISTED FOR PROCEDURE.
--- NOTE | 2018-10-22 11:45 | NUR ---
DOPAMINE STARTED AT 4MCG/KG/MIN AND FLUID BOLUS GIVEN; SBP 70'S.
[2018-10-22 12:06] LABS: Vancomycin, Trough 28.5 ug/mL (5.0-10.0)
--- NOTE | 2018-10-22 13:09 | NUR ---
DOPAMINE DRIP REDUCED TO 3MCG/KG/MIN; SBP IMPROVING.
--- NOTE | 2018-10-22 13:50 | NUR ---
TO CT. SCAN PER ORDER; NO UNUSUAL EVENT OCCURRED DURING TRANSPORT TO/FROM CT. SCAN OR DURING SCAN.
--- NOTE | 2018-10-22 14:13 | NUR ---
DR. GOMES RETURNED; PLANNING TO DO BRONCH BUT UNABLE TO REACH SON; WILL BRONCH PATIENT IN AM.
--- NOTE | 2018-10-22 16:00 | NUR ---
DOPAMINE DRIP DOWN TO 1MCG/KG/MIN.
--- NOTE | 2018-10-22 16:50 | NUR ---
DOPAMINE DRIP DISCONTINUED (ON STANDBY). TUBE FEEDING AT 25/HR (GOAL IS 40/HR). NO UNDUE CHANGES.
--- NOTE | 2018-10-22 18:00 | NUR ---
SUMMARY: DOPAMINE DRIP REMAINS OFF; SBP 140'S. FIO2 UP TO 60%; BIOX DROPPED DOWN EARLIER. OVERALL STATUS UNCHANGED. FAMILY SPOKE TO PHYSICIAN AND PHYSICIAN CHANGED BACK TO DNR/NO CODE STATUS.
--- NOTE | 2018-10-22 19:30 | NUR ---
[place] of Care: Patient intubated/sedated, vent to AC-12/480/60/8, O2-91-93% VSS. Responds to painful stimuli, but unable to follow commands. Respiratory rate- mid to high 30's at shift change, Propofol gtt increased from 20mcg/kg/min to 25mcg/kg/min with good effect noted. PICC to rt upper arm patent and intact, infusing without difficulty, small amount of blood drainage noted under dressing, but not increasing in amount. Power-glide to ALVAREZ patent and intact, infusing without difficulty. OG infusing Pivot 1.5cal at 25ml/hr, will assess residual and increase by 15ml/hr if no s/s of GI intolerance. Mauricio cath patent and intact, draining clear yellow urine. Will continue to monitor for pain, safety, comfort.
[2018-10-23 04:40] LABS: Base Excess Venous 3.2 mmol/L; Bicarbonate Venous 26.2 mmol/L (24.0-30.0); PCO2 Venous 67.8 mmHg (38-42); PO2 Venous 51.6 mmHg (38-42); pH Blood Venous 7.26 (7.34-7.37)
[2018-10-23 04:49] LABS: BASOPHILS ABSOLUTE AUTO 0.06 K/mm3 (0.00-0.23); BASOPHILS PERCENT AUTO 0 % (0-2); EOSINOPHILS PERCENT AUTO 0 % (0-6); Hemoglobin 8.6 g/dL (13.5-17.5); IMMATURE GRAN ABSOLUTE AUTO 1.25 K/mm3 (0.00-0.10); IMMATURE GRAN PERCENT AUTO 4 % (0-1); LYMPHOCYTES ABSOLUTE AUTO 0.52 K/mm3 (0.84-5.20); LYMPHOCYTES PERCENT AUTO 2 % (21-46); MONOCYTES ABSOLUTE AUTO 0.96 K/mm3 (0.16-1.47); MONOCYTES PERCENT AUTO 3 % (4-13); Mean Corpuscular HGB 31.5 pg (26.0-34.0); Mean Corpuscular HGB Conc 30.7 g/dL (31.5-36.5); Mean Corpuscular Volume 103 fL (80-100); NEUTROPHILS ABSOLUTE AUTO 26.94 K/mm3 (1.96-9.15); NEUTROPHILS PERCENT AUTO 91 % (41-73); NRBC ABSOLUTE 0.32 K/mm3 (0.00-0.02); NRBC Auto 1.1 /100 WBC (0.0-0.2); Platelet Count 55 K/mm3 (150-400); RDW Coefficient Variation 14.8 % (11.7-14.2); RDW Standard Deviation 55.3 fL (35.1-46.3); Red Blood Cell Count 2.73 M/mm3 (4.30-5.90); White Blood Cell Count 29.73 K/mm3 (4.00-11.30)
[2018-10-23 05:11] LABS: Alanine Aminotransfer (ALT/SGP 329 U/L (12-78); Albumin, Blood 1.8 g/dL (3.4-5.0); Albumin/Globulin Ratio 0.6 (0.8-1.8); Alk Phos 224 U/L (50-136); Anion Gap 3 mmol/L (6-16); Aspartate Aminotrans (AST/SGOT 120 U/L (12-37); Bilirubin, Total 0.7 mg/dL (0.1-1.0); Blood Urea Nitrogen 83 mg/dL (8-24); Bun/Creatinine Ratio 69.7 (12.0-20.0); CO2, Blood 32 mmol/L (21-32); Calcium, Blood 7.5 mg/dL (8.5-10.1); Chloride, Blood 117 mmol/L (98-108); Creatinine, Blood 1.19 mg/dL (0.60-1.20); Globulin, Blood 3.2 g/dL (2.2-4.0); Glomerular Filtration Rate >60 (60-); Glucose, Blood 260 mg/dL (70-99); Magnesium, Blood 3.7 mg/dL (1.6-2.4); Phosphorus, Blood 4.4 mg/dL (2.5-4.9); Potassium, Blood 5.6 mmol/L (3.5-5.5); Sodium, Blood 152 mmol/L (136-145)
[2018-10-23 05:59] LABS: Mean Platelet Volume 13.3 fL (9.1-12.4)
--- NOTE | 2018-10-23 06:31 | NUR ---
Shift Summary: Remained on AC-12/480/50/8, throughout majority of shift. Withdrawals to painful stimuli, otherwise not rousing and/or following any commands. Propofol gtt decreased throughout shift from 25mcg/kg/min to 5mcg/kg/min. Contacted Dr. Aldana this morning r/t [id number]-7.26, CO2- 67.8, and patient's respiratory rate of 14-18 throughout shift. Received order to increase back-up rate on ventilator from 12 to 18, change completed by RT Carson. Also received order to increase free water per OG tube from 30ml/4hr to 300ml/hr per Na-152. PICC line and Power-glide remain patent and intact. Mauricio cath patent and intact, draining clear yellow urine. Patient's respiratory rate increasing at end of shift, now breathing 22-24, remains calm and not rousing to verbal stimuli. Will continue to monitor until report to day shift RN.
--- NOTE | 2018-10-23 07:30 | NUR ---
ASSUMED CARE OF PATIENT; SEE ASSESSMENT CHARTING FOR DETAILS. PATIENT REMAINS INTUBATED AND ON VENTILATOR; PROPOFOL DRIP AT 5MCG/KG/MIN; RIKERS' 2-3. DIFFICULT TO GET ANY ROUSAL FROM PATIENT. PERRL AT 2MM/SLUGGISH. BILAT. SOFT WRIST RESTRAINTS IN PLACE TO PREVENT ACCIDENTAL OR INTENTIONAL EXTUBATION OR PULLING OF LINES. NO DRIPS INFUSING AT THIS TIME; ONLY NS AT TKO RATES FOR IV ANTIBIOTIC TX. CRABTREE TO GRAVITY AND DRAINING FAIR AMOUNTS OF STRAW COLORED URINE. OGT INFUSING WITH TUBE FEEDING AT 40ML/HR; RESIDUAL 165; RESUMED FEEDING AT CURRENT RATE. RECEIVING 300ML OF FREE WATER EVERY 4 HOURS D/T ELEVATED SODIUM LEVEL. SCD'S IN PLACE; NO UNDUE EDEMA NOTED. VENT. SETTINGS UNCHANGED FROM FACING END TRIMMER.
--- NOTE | 2018-10-23 12:00 | NUR ---
RESIDUAL FROM OGT >560ML; WATER/BROWN/GLASGOW IN COLOR. FEEDING TURNED OFF; WILL RESTART FEEDING IN A FEW HOURS.
[2018-10-23 12:08] LABS: Bun/Creatinine Ratio 71.5 (12.0-20.0); Calcium, Blood 7.4 mg/dL (8.5-10.1); Creatinine, Blood 1.3 mg/dL (0.60-1.20); Potassium, Blood 5.1 mmol/L (3.5-5.5)
--- NOTE | 2018-10-23 13:00 | NUR ---
CONSULT DR. VOSS D/T LOW PLATELETS; DR GOMES WANTS TO KNOW IF ASA AND PLAVIX CAN BE DC'D.
--- NOTE | 2018-10-23 13:30 | NUR ---
DR. VOSS IN TO SEE PATIENT; CHANGED ASA FROM 2 REGULAR STRENGTH TO 1 BABY ASA; PLAVIX DRIP TO CONTINUE.
--- NOTE | 2018-10-23 16:00 | NUR ---
RESIDUAL <15CC; RESUMED TF AT 25/ML/HR AND WILL WORK TOWARDS GOAL OF 40ML/HR ( PER ENERGY EFFICIENCY ENGINEER SUGGESTION). CONT. WITH 300ML OF FREE WATER EVERY 4 HOURS.
[2018-10-23 16:09] LABS: Base Excess Venous 4.1 mmol/L; Bicarbonate Venous 27.6 mmol/L (24.0-30.0); PCO2 Venous 52.3 mmHg (38-42); PO2 Venous 142 mmHg (38-42); pH Blood Venous 7.36 (7.34-7.37)
[2018-10-23 16:50] LABS: Bun/Creatinine Ratio 67.2 (12.0-20.0); Calcium, Blood 7.1 mg/dL (8.5-10.1); Creatinine, Blood 1.37 mg/dL (0.60-1.20); Potassium, Blood 5.2 mmol/L (3.5-5.5)
--- NOTE | 2018-10-23 17:30 | NUR ---
SUMMARY: NO ACUTE CHANGES; REMAINS DNR STATUS; PURPLE BAND ON R WRIST. VSS REASONABLE AND REMAINS OFF PRESSORS. RESUMED TF AT 1600 AND WILL INSTRUCT NIGHT NURSE TO ADVANCE TO GOAL RATE TOLERATED.
--- NOTE | 2018-10-23 19:30 | NUR ---
ASSUMED CARE BEDSIDE REPORT RECIEVED. PT IS RESTING IN BED ON VENT. SETTINGS AC 18, TV 480, PEEP 8, FIO2 40%. VITAL SIGN STABLE. PROPOFOL INFUSING AT 5 MCG/KG/MIN AND NS TKO. PT DOES NOT RESPOND TO VOICE OR PAINFUL STIMULI. NO GAG OR COUGH PRESENT WITH DEEP ORAL SUCTION. PICC TO LIA C/D/I. PG TO ALVAREZ C/D/I. OGT IN PLACE WITH TF AT 25 ML/HR, MINIMAL TO NO RESIDUALS. CRABTREE IN PLACE WITH YELLOW OUTPUT NOTED. SBW RESTRAINTS IN PLACE. WILL CONTINUE TO MONITOR.
--- NOTE | 2018-10-23 20:04 | NUR ---
HAD DANN RUSS,RN EXAMINE PICC LINE TO MAKE SURE RN IS MEASURING CORRECTLY; SHE AGREES IT IS 3CM OUT AND STATES IT LOOKS GOOD AND NO ISSUE WITH IT OUT 2CM SINCE PLACEMENT, ETC.
[2018-10-24 03:47] LABS: Base Excess Venous 1.7 mmol/L; Bicarbonate Venous 25.4 mmol/L (24.0-30.0); PCO2 Venous 56.7 mmHg (38-42); PO2 Venous 60.4 mmHg (38-42)
[2018-10-24 03:54] LABS: BASOPHILS ABSOLUTE AUTO 0.05 K/mm3 (0.00-0.23); BASOPHILS PERCENT AUTO 0 % (0-2); EOSINOPHILS PERCENT AUTO 0 % (0-6); Hematocrit 26.5 % (37.0-53.0); IMMATURE GRAN ABSOLUTE AUTO 1.11 K/mm3 (0.00-0.10); IMMATURE GRAN PERCENT AUTO 3 % (0-1); LYMPHOCYTES PERCENT AUTO 1 % (21-46); MONOCYTES ABSOLUTE AUTO 0.65 K/mm3 (0.16-1.47); MONOCYTES PERCENT AUTO 2 % (4-13); Mean Corpuscular HGB 31.5 pg (26.0-34.0); Mean Corpuscular HGB Conc 30.2 g/dL (31.5-36.5); Mean Corpuscular Volume 104 fL (80-100); NEUTROPHILS ABSOLUTE AUTO 30.75 K/mm3 (1.96-9.15); NEUTROPHILS PERCENT AUTO 93 % (41-73); NRBC ABSOLUTE 0.19 K/mm3 (0.00-0.02); NRBC Auto 0.6 /100 WBC (0.0-0.2); Platelet Count 77 K/mm3 (150-400); RDW Coefficient Variation 14.8 % (11.7-14.2); RDW Standard Deviation 56.5 fL (35.1-46.3); Red Blood Cell Count 2.54 M/mm3 (4.30-5.90); White Blood Cell Count 32.96 K/mm3 (4.00-11.30)
[2018-10-24 03:55] LABS: Mean Platelet Volume 13.3 fL (9.1-12.4)
[2018-10-24 04:14] LABS: Anion Gap 5 mmol/L (6-16); Blood Urea Nitrogen 124 mg/dL (8-24); CO2, Blood 29 mmol/L (21-32); Calcium, Blood 7.3 mg/dL (8.5-10.1); Chloride, Blood 118 mmol/L (98-108); Creatinine, Blood 2.43 mg/dL (0.60-1.20); Glomerular Filtration Rate 27 (60-); Glucose, Blood 277 mg/dL (70-99); Magnesium, Blood 4.1 mg/dL (1.6-2.4); Phosphorus, Blood 3.7 mg/dL (2.5-4.9); Potassium, Blood 5.5 mmol/L (3.5-5.5); Sodium, Blood 152 mmol/L (136-145)
--- NOTE | 2018-10-24 04:16 | NUR ---
PT BEEN OF SEDATION ALL NIGHT, NO GAG, DOESN'T FOLLOW COMMANDS, BRIEFLY PLACED ON PS 10 W/ PEEP OF5 VT'S 240-257, DID NOT ATTEMPT WEAN
[2018-10-24 04:31] LABS: Vancomycin, Trough 30.6 ug/mL (5.0-10.0)
--- NOTE | 2018-10-24 05:53 | NUR ---
SHIFT SUMMARY NO ACUTE CHANGES THIS SHIFT. PT REMAINS ON VENT, AC 18, TV 480, PEEP 8, FIO2 40%. VITAL SIGNS HAVE REMAINED STABLE. PROPOFOL HAS REMAINED ON STANDBY THROUGHOUT THE NIGHT. PT STILL UNRESPONSIVE TO NOXIOUS STIMULI AND WITHOUT GAG OR COUGH WITH DEEP ORAL SUCTION. NS INFUSING TKO. PICC TO LIA C/D/I. PG TO ALVAREZ C/D/I. OGT IN PLACE WITH TF AT 40 ML/HR GOAL RATE. PT WITH MINIMAL RESIDUALS NOTED. CRABTREE IN PLACE WITH YELLOW OUTPUT NOTED. SBW RESTRAINTS REMAIN IN PLACE. WILL CONTINUE TO MONITOR AND REPORT OFF TO ONCOMING RN.
--- NOTE | 2018-10-24 07:30 | NUR ---
ASSUMED CARE OF PATIENT; SEE ASSESSMENT CHARTING FOR DETAILS. PATIENT OFF PROPOFOL; NO RESPONSE TO PAIN, ETC. INTUBATED WITH VENTILATOR SETTINGS: A/C 18, TV 480, PEEP 8 AND FIO2 40%. LUNGS COARSE WITH SCATTERED RHONCHI; SUCTIONED FOR SMALL AMOUNT OF CREAMY MUCUS. OGT FEEDING OFF FOR AWHILE D/T LARGE AMOUNT OF VOMITUS, AROUND 0600, WITH PROBABLE ASPIRATION. CRABTREE DRAINING FAIR AMOUNT OF LT. CATHY URINE. NS INFUSING AT TKO RATE FOR MULTIPLE IV ANTIBIOTICS. MONITOR NSR; VSS.
--- NOTE | 2018-10-24 08:30 | NUR ---
DR. HELLER (HOSP) HERE; ORDEED NEPHROLOGY CONSULT (DR. ARGUETA) D/T DECLINING RENAL FUNCTION.
--- NOTE | 2018-10-24 08:40 | NUR ---
RN T/C TO DR. ARGUETA; INFORMED HIM OF CONSULT; STATES HE WILL SEE PATIENT THIS AM.
--- NOTE | 2018-10-24 08:50 | NUR ---
DR. ARGUETA ARRIVED TO EVAL. PATIENT; SEE ORDERS.
--- NOTE | 2018-10-24 15:00 | NUR ---
RN [facility] FROM PIC LINE FOR [employer]PATCH[employer] (NA+LEVEL).
--- NOTE | 2018-10-24 15:30 | NUR ---
T/C TO DR. ARGUETA WITH NA LEVEL--152; ORDERS GIVEN TO START 1/2NS TO INFUSE (IV) AT 50/HR CONTINUOUS. CONT. TO GIVE FREE WATER BUT REDUCED TO 200ML EVERY 4 HOURS. RESIDUALS HAVE REDUCED; REGLAN GIVEN TID AND SEEMS TO BE HELPFUL; NO STOOLING NOTED. U/S OF KIDNEYS DONE EARLIER TODAY AND SHOWED 600ML OF URINE; ECONOMIC SPECIALIST CATHETER UNDER GUIDANCE OF U/S; URINE CAME OUT QUICKLY.
--- NOTE | 2018-10-24 18:00 | NUR ---
SUMMARY: TOTAL OF 1700ML OF URINE OUT THIS 12 HOURS; HEMATURIC; APPEARS CLEARER AFTER BAG EMPTIED. NEPRO TF GOING (FEEDING CHANGED PER ORDER OF PILLING MACHINE OPERATOR D/T ARF). NO UNUSUAL RESIDUALS NOTED. CBG WAS 240'S; RECEIVED 2UNIT REGULAR INSULIN PER SS COVERAGE. SPOKE TO DR. HELLER THIS EVENING RE: ? EEG D/T NON-RESPONSIVENESS; ORDER GIVEN FOR EEG D/T ENCEPHALOPHATHY. FAMILY CALLED EARLIER AND WERE HOPEFUL EEG WOULD BE ORDERED. WILL REPORT TO ONCOMING RN.
--- NOTE | 2018-10-24 19:45 | NUR ---
ASSUMED CARE BEDSIDE REPORT RECIEVED. PT IS LAYING IN BED, UNSEDATED ON VENT. VENT SETTINGS AC 18, TV 480, PEEP 8, FIO2 30%. PT WITH NO RESPONSE TO NOXIOUS STIMULI AND NO GAG OR COUGH NOTED WITH DEEP ORAL SUCTION. PICC TO LIA C/D/I WITH 1/2 NS INFUSING AT 50 ML/HR AND NS TKO. PG TO ALVAREZ C/D/I. PT WITH OGT IN PLACE WITH TF AT 25 ML/HR, MINIMAL RESIDUALS, NO SIGNS OF ASPIRATION AT THIS TIME. TRACHEAL DEVIATION NOTED. CRABTREE IN PLACE WITH YELLOW OUTPUT NOTED WITH BLOODY SEDIMENT IN TUBING. CRABTREE ADVANCED DURING DAY SHIFT PER REPORT, BLOOD IN URINE SLOWLY IMPROVING. SBW RESTRAINTS IN PLACE. VITAL SIGNS STABLE. WILL CONTINUE TO MONITOR.
[2018-10-25 04:33] LABS: Base Excess Venous 2.3 mmol/L; Bicarbonate Venous 25.9 mmol/L (24.0-30.0); PCO2 Venous 51.8 mmHg (38-42); PO2 Venous 43.1 mmHg (38-42); pH Blood Venous 7.34 (7.34-7.37)
[2018-10-25 04:47] LABS: BASOPHILS ABSOLUTE AUTO 0.05 K/mm3 (0.00-0.23); BASOPHILS PERCENT AUTO 0 % (0-2); EOSINOPHILS PERCENT AUTO 0 % (0-6); Hemoglobin 7.6 g/dL (13.5-17.5); IMMATURE GRAN PERCENT AUTO 3 % (0-1); LYMPHOCYTES ABSOLUTE AUTO 0.95 K/mm3 (0.84-5.20); LYMPHOCYTES PERCENT AUTO 3 % (21-46); MONOCYTES ABSOLUTE AUTO 1.49 K/mm3 (0.16-1.47); MONOCYTES PERCENT AUTO 4 % (4-13); Mean Corpuscular HGB 31.8 pg (26.0-34.0); Mean Corpuscular HGB Conc 30.4 g/dL (31.5-36.5); Mean Corpuscular Volume 105 fL (80-100); Mean Platelet Volume 12.7 fL (9.1-12.4); NEUTROPHILS ABSOLUTE AUTO 31.36 K/mm3 (1.96-9.15); NEUTROPHILS PERCENT AUTO 90 % (41-73); NRBC ABSOLUTE 0.14 K/mm3 (0.00-0.02); NRBC Auto 0.4 /100 WBC (0.0-0.2); Platelet Count 105 K/mm3 (150-400); RDW Coefficient Variation 15.1 % (11.7-14.2); Red Blood Cell Count 2.39 M/mm3 (4.30-5.90); White Blood Cell Count 34.85 K/mm3 (4.00-11.30)
[2018-10-25 04:56] LABS: Albumin, Blood 1.7 g/dL (3.4-5.0); Anion Gap 4 mmol/L (6-16); Blood Urea Nitrogen 135 mg/dL (8-24); CO2, Blood 29 mmol/L (21-32); Calcium, Blood 7.3 mg/dL (8.5-10.1); Chloride, Blood 121 mmol/L (98-108); Creatinine, Blood 2.11 mg/dL (0.60-1.20); Glomerular Filtration Rate 32 (60-); Glucose, Blood 208 mg/dL (70-99); Magnesium, Blood 4.2 mg/dL (1.6-2.4); Phosphorus, Blood 4.5 mg/dL (2.5-4.9); Potassium, Blood 5.1 mmol/L (3.5-5.5); Sodium, Blood 154 mmol/L (136-145); Vancomycin, Random 19.3 ug/mL
--- NOTE | 2018-10-25 05:59 | NUR ---
SHIFT SUMMARY NO ACUTE CHANGES THIS SHIFT. PT REMAINS UNSEDATED ON VENT. VENT AC 18, TV 480, PEEP 8, FIO2 30%. VITAL SIGNS HAVE REMAINED STABLE. PT CONTINUES TO BE UNRESPONSIVE TO NOXIOUS STIMULI. 1/2 NS INFUSING AT 50 ML/HR, NS TKO. PICC TO LIA C/D/I. PG TO ALVAREZ C/D/I. OGT REMAINS IN PLACE WITH TF AT 25 ML/HR. PT WITH MINIMAL RESIDUALS THIS SHIFT. CRABTREE REMAINS IN PLACE WITH YELLOW OUTPUT NOTED. NO NEW BLEEDING NOTED. SBW RESTRAINTS REMAIN IN PLACE. WILL CONTINUE TO MONITOR AND REPORT OFF TO ONCOMING RN.
--- NOTE | 2018-10-25 08:00 | NUR ---
CARE ASSUMED CARE AND REPORT ASSUMED FROM BARTOLO COLON. PT INTUBATED ON VENT AC 18, TV 480, PEEP 8, FIO2 40%. LUNG SOUNDS CLEAR BUT DIMINISHED. PT UNRESPONIVE TO PAINFUL AND VERBAL STIMULI. PUPILS 2MM AND NON REACTIVE. NSR WITH PVCS, HR 80S. MAP 65-80 AT THIS TIME. BUE RESTRAINED. TOLERATING TF WITH 70 ML RESIDUALS. AWAITING EEG. 1/2 NS INFUSING AT 50 ML/HR PER ORDER. CRABTREE CATH SERCURED AND PATENT. WILL CONTINUE TO MONITOR.
--- NOTE | 2018-10-25 12:47 | NUR ---
REASSESSMENT PT REMAINS UNRESPONSIVE AND ON VENTILATOR AC 18, TV 480, PEEP 8M, FIO2 40%. REMAINS OFF SEDATION AND IS UNRESPONSIVE TO ALL STIMULI. PUPILS REMAIN NON REACTIVE. REMAINS IN NSR WITH PVCS, HR 70S. BP STABLE AT THIS TIME. TOLERARTING TF WITH ZERO RESIDUALS. SPOKE WITH SON AND POA, WHO STATES PT WOULD NOT HAVE WANTED TO REMAIN ALIVE ON TUBES AND A VENTILATOR. SON IS REQUESTING TO TRANSITION TO COMFORT CARE TOMORROW WHEN FAMILY ARRIVES. EEG AND HEAD CT ORDERED PER MD AREVALO AND WILL OBTAIN TESTS THIS AFTERNOON. WILL CONTINUE TO MONITOR.
[2018-10-25 16:29] LABS: Source, Urine Catheter
[2018-10-25 16:52] LABS: Bilirubin, Urine Neg (Neg); Blood, Urine 5+ (Neg); Glucose Qualitative, Urine Neg (Neg); Ketones, Urine Neg (Neg); Leukocyte Esterase, Urine 1+ (Neg); Nitrite, Urine Neg (Neg); Protein, Urine 2+ (Neg); Specific Gravity, Urine 1.015 (1.003-1.022); Urobilinogen, Urine NORM (Normal)
[2018-10-25 17:11] LABS: Appearance, Urine Clear (Clear); Color, Urine Yellow (P-Yellow)
[2018-10-25 17:17] LABS: Red Blood Cells, Urine 25-50 /hpf (0-2)
[2018-10-25 17:19] LABS: Bacteria Few /hpf; Squamous Epithelial Cells Few /hpf (Few)
[2018-10-25 17:23] LABS: Hyaline Casts Rare /lpf (0-2)
--- NOTE | 2018-10-25 18:33 | NUR ---
SHIFT SUMMARY PT REMAINED ON VENTILATOR WITHOUT SEDATION ENTIRE SHIFT. PT HAS BEEN UNREPSONSIVE TO ANY STIMULI AND PUPILS ARE NON REACTIVE. EEG COMPLETED ALONG WITH HEAD CT AND ADOMINAL/PELVIS CT; SEE RESULTS. / NS MIV DISCONTINUED AND D5 STARTED AT 100 ML/HR PER ORDER. NSR WITH PVCS, HR 70-80S WITH MAP 60-80. HOB ELEVATED, PT TURNED Q2H, AND ORAL CARE COMPLETED PER PROTOCOL. PT CONTINUES TO HAVE LARGE BRUISING ON R FLANK AND R GROIN. PTS SON, KRISTEN, UPDATED ON PT STATUS AND REPORTED HE WOULD LIKE TO TRANSITION TO COMFORT CARE TOMORROW. WILL GIVE BEDSIDE, HANDOFF REPORT TO NOC RN.
--- NOTE | 2018-10-25 19:10 | NUR ---
ASSUMING CARE OF PT AT THIS TIME. PT REPORT RECEIVED AT BEDSIDE WITH OFFGOING NURSE, RAMIN COLON. PT LAYING IN BED, INTUBATED, AND UNRESPONSIVE UPON ENTERING THE ROOM. VS STABLE - SEE VS FS. PT DOES NOT APPEAR TO BE IN DISTRESS AT THIS TIME. WILL REVIEW PLAN OF CARE.
--- NOTE | 2018-10-25 19:15 | NUR ---
ASSESSMENT PT CALM, UNRESPONSIVE, DOES NOT RESPOND TO PAINFUL OR VERBAL STIMULI, DOES NOT OPEN EYES, DOES NOT NOD HEAD Y/N TO QUESTIONS, DOES NOT FOLLOW COMMANDS, NO PUPIL RESPONSE, NO TRACKING WITH EYES, NO MOVEMENT OF EYES. NO SEDATION. KAL SENSATION. NO MOVEMENT OF EXTREMETIES. NO S/SX OF PAIN/DISCOMFORT NOTED. LUNGS COARSE. VENT SETTINGS: AC 18, TV 480, PEEP 8, FIO2 40%. OXY SAT >90%. RR 20'S. NO SUCTION VIA ETT. TEMP 99.3 - BLANKETS REMOVED. NSR WITH OCC PVC'S. HR 80'S. BP STABLE - SEE VS FS. STRONG RADIAL PULSES. FAINT TIBIAL AND PEDAL PULSES. EDEMA NOTED. WEEPING RUE. WARM, PALE, DRY SKIN. HYPOACTIVE BT X4 QUADRANTS. ABD SOFT, NO FACIAL GRIM WITH PALPATION, MOD DIST. OG IN PLACE. TF: NEPHRO AT 35 ML/HR AND 200 ML FLUSH Q4 HR. RESIDUAL 80 ML. F/C: DARK YELLOW URINE. POWERGLIDE ALVAREZ. PICC LIA. D5 @ 100 ML/HR. NS TKO AT 10 ML/HR.
[2018-10-26 03:27] LABS: BASOPHILS ABSOLUTE AUTO 0.02 K/mm3 (0.00-0.23); BASOPHILS PERCENT AUTO 0 % (0-2); EOSINOPHILS PERCENT AUTO 0 % (0-6); IMMATURE GRAN ABSOLUTE AUTO 0.67 K/mm3 (0.00-0.10); IMMATURE GRAN PERCENT AUTO 3 % (0-1); LYMPHOCYTES ABSOLUTE AUTO 0.75 K/mm3 (0.84-5.20); LYMPHOCYTES PERCENT AUTO 3 % (21-46); MONOCYTES ABSOLUTE AUTO 1.16 K/mm3 (0.16-1.47); MONOCYTES PERCENT AUTO 5 % (4-13); Mean Corpuscular HGB 31.2 pg (26.0-34.0); Mean Corpuscular Volume 104 fL (80-100); Mean Platelet Volume 12.9 fL (9.1-12.4); NEUTROPHILS ABSOLUTE AUTO 21.71 K/mm3 (1.96-9.15); NEUTROPHILS PERCENT AUTO 89 % (41-73); NRBC ABSOLUTE 0.16 K/mm3 (0.00-0.02); NRBC Auto 0.7 /100 WBC (0.0-0.2); Platelet Count 84 K/mm3 (150-400); RDW Coefficient Variation 15.7 % (11.7-14.2); RDW Standard Deviation 56.1 fL (35.1-46.3); Red Blood Cell Count 1.73 M/mm3 (4.30-5.90); White Blood Cell Count 24.31 K/mm3 (4.00-11.30)
[2018-10-26 03:32] LABS: Hemoglobin 5.4 g/dL (13.5-17.5)
[2018-10-26 03:43] LABS: Albumin, Blood 2.3 g/dL (3.4-5.0); Anion Gap 2 mmol/L (6-16); Blood Urea Nitrogen 104 mg/dL (8-24); Bun/Creatinine Ratio 72.2 (12.0-20.0); CO2, Blood 32 mmol/L (21-32); Calcium, Blood 7.3 mg/dL (8.5-10.1); Chloride, Blood 123 mmol/L (98-108); Creatinine, Blood 1.44 mg/dL (0.60-1.20); Glomerular Filtration Rate 50 (60-); Glucose, Blood 246 mg/dL (70-99); Sodium, Blood 157 mmol/L (136-145); Vancomycin, Random 17.8 ug/mL
--- NOTE | 2018-10-26 04:16 | NUR ---
DR. AREVALO CALLED DR. AREVALO. INFORMED DR. AREVALO OF AM LAB[facility]. NO NEW ORDERS AT THIS TIME. PER DR. AREVALO, FAMILY IS PLANNING FOR COMFORT CARE MEASURES THIS AM.
--- NOTE | 2018-10-26 04:31 | NUR ---
SHIFT ASSESSMENT NO ACUTE CHANGES NOTED T/O SHIFT. PT CALM, UNRESPONSIVE, DOES NOT RESPOND TO PAINFUL OR VERBAL STIMULI, DOES NOT OPEN EYES, DOES NOT NOD HEAD Y/N TO QUESTIONS, DOES NOT FOLLOW COMMANDS, NO PUPIL RESOPNSE, NO TRACKING WITH EYES, NO MOVEMENT OF EYES. NO SEDATION. KAL SENSATION. NO MOVEMENT OF EXTREMETIES. NO S/SX OF PAIN/DISCOMFORT. NO FAMILY AT BEDSIDE. PER REPORT FROM RAMIN COLON, PT'S FAMILY SUPPOSE TO ARRIVE TO [facility] THIS AM AND CHANGE STATUS TO COMFORT CARE MEASURES THIS AM. LUNGS COARSE. VENT SETTINGS: AC 18, TV 480, PEEP 8, FIO2 35%. OXY SAT >90%. RR 18 TO 20'S. NO SPUTUM SUCTIONED VIA ETT. TMAX 99.3 - FAN TURNED ON, BLANKETS REMOVED. NSR WITH OCC PVC'S AND PAC'S. 12 BEAT RUN OF [place]. SEE RHYTHM STRIPS. HR 70'S TO 80'S. BP STABLE - SEE VS FS. STRONG RADIAL PULSES. FAINT TIBIAL AND PEDAL PULSES. EDEMA NOTED. WEEPING RUE. DRY FLOWS IN PLACE. WARM, PALE, DRY SKIN. HYPOACTIVE BT X4 QUADRANTWS. ABD SOFT, NO FACIAL GRIM WITH PALPATION, MOD DIST. OG IN PLACE. TF: NEPHRO AT 35 ML/HR AND 200 ML FLUSH Q4 HR. RESIDUAL WNL. F/C: DARK YELLOW URINE WITH SEDIMENT. POWERGLIDE ALVAREZ. PICC LIA. D5 @ 100 ML/HR. NS TKO ON STANDBY. WILL CONT TO MONITOR PT AND WILL PROVIDE BEDSIDE REPORT TO ONCOMING NURSE THIS AM.
--- NOTE | 2018-10-26 08:41 | NUR ---
CARE ASSUMED CARE AND REPORT ASSUMED FROM WIL COLON. PT REMAINS INTUBATED ON VENT AC 18, 480, PEEP 8, FIO2 35%. NO SEDATION. PT UNRESPONSIVE TO ALL STIUMULI WITH NON REACTIVE PUPILS. NO S/S PAIN AT THIS TIME. TOLERATING TF AT GOAL RATE, 35 ML/HR WITH 70 ML RESIDUAL. PT HAS PERIORBITAL SWELLING. LUNG SOUNDS COARSE THROUGHOUT ALL PACE. ORAL SPUTUM IS DARK BROWN, JULY COLOR. EXTREMITIES ELEVATED. CRABTREE CATH SECURED AND PATENT. D5 INFUSING AT 100 ML/HR PER ORDER; WILL DISCUSS WITH MD. AWAITING ARRIVAL OF FAMILY. WILL CONTINUE TO MONITOR.
--- NOTE | 2018-10-26 10:36 | NUR ---
Initial Visit: Called to room to support family during withdrawal of life support. Pt is unresponsive, comatose, impaired neurologically, not on sedation. Family has gathered in the room. Dr Sterling is present and explains why ceasing life support would be the appropriate thing to do at this point. Dr. Sterling discussed pt's condition and reviewed pt's hospitalization and the events that led up to the pt's worsening health. All parties verbalize understanding of condition and issues. They are deciding to place pt on comfort care. Alley, nurse, reports that she will arrange the extubation and has called respiratory therapy. Family seems to be coping appropriately, they decline need for nitroglycerin nitrator operator batch at this time, however, they seem gracious enough to allow the extra support. [employer], Aubrie, comes to the room. Updated her on what the plan of care is, with extubation happening today. She will check in with family. Will remain available.
--- NOTE | 2018-10-26 10:36 | NUR ---
FAMILY BEDSIDE MULTIPLE FAMILY MEMBERS BEDSIDE. PALLIATIVE CARE BEDSIDE. MD AREVALO AT BEDSIDE AND HAD EXTENSIVE CONVERSATION WITH FAMILY REGARDING PTS STATUS AND TRANSITION TO COMFORT CARE. POA VERBALLY AGREED TO TRANSITION TO COMFORT CARE; WILL INITIATE.
--- NOTE | 2018-10-26 11:05 | NUR ---
EXTUBATION 1100 - PT EXTUBATED AT THIS TIME. FAMILY BEDSIDE AND COMFORT CARE INITIATED. WILL MONITOR.
--- NOTE | 2018-10-26 11:49 | NUR ---
PT AT 1110 WITH FAMILY AT BEDSIDE. DONOR LINE NOTIFIED AND JOSÉ AWARE.
== END 2018-10-26 11:10 | DRG 246 ==
LOC: ER 14:20 → ICUE 14:37 → ICUW 14:37 → ICUE 14:45 → MEDS 10-13 17:32 → ICUW 10-19 04:30
PROVIDERS: Emergency Medicine; Hospitalist; Internal Medicine Cardiovascular Disease; Internal Medicine Critical Care Medicine; Internal Medicine Endocrinology, Diabetes & Metabolism; Internal Medicine Nephrology; Internal Medicine Pulmonary Disease; Nurse Practitioner Acute Care; Pharmacist; Student in an Organized Health Care Education/Training Program; ADMIT Internal Medicine Cardiovascular Disease
PROC: 4A023N7 Measurement of Cardiac Sampling and Pressure, Left Heart, Percutaneous Approach (ICD-10-PCS; principal; 2018-10-09)
PROC: 027034Z Dilation of Coronary Artery, One Artery with Drug-eluting Intraluminal Device, Percutaneous Approach (ICD-10-PCS; 2018-10-09)
PROC: 02HV33Z Insertion of Infusion Device into Superior Vena Cava, Percutaneous Approach (ICD-10-PCS; 2018-10-19)
PROC: 5A1955Z Respiratory Ventilation, Greater than 96 Consecutive Hours (ICD-10-PCS; 2018-10-21)
PROC: 0BH17EZ Insertion of Endotracheal Airway into Trachea, Via Natural or Artificial Opening (ICD-10-PCS; 2018-10-21)
PROC: 3E033XZ Introduction of Vasopressor into Peripheral Vein, Percutaneous Approach (ICD-10-PCS; 2018-10-22)
DX: I21.09 ST elevation (STEMI) myocardial infarction involving other coronary artery of anterior wall (principal); G92 Toxic encephalopathy; J18.9 Pneumonia, unspecified organism; J96.01 Acute respiratory failure with hypoxia; R40.20 Unspecified coma; I47.2 Ventricular tachycardia; K92.1 Melena; N17.9 Acute kidney failure, unspecified; I25.10 Atherosclerotic heart disease of native coronary artery without angina pectoris; I10 Essential (primary) hypertension; I35.0 Nonrheumatic aortic (valve) stenosis; I95.81 Postprocedural hypotension; R41.0 Disorientation, unspecified; R74.0 Nonspecific elevation of levels of transaminase and lactic acid dehydrogenase [LDH]; Y95 Nosocomial condition; D64.9 Anemia, unspecified; Z79.82 Long term (current) use of aspirin; D69.6 Thrombocytopenia, unspecified; N18.9 Chronic kidney disease, unspecified; D63.1 Anemia in chronic kidney disease
CPT/HCPCS: 31500; 31720; 36415; 36416; 36569; 36600; 70450; 71045; 71046; 71250; 74018; 74176; 76770; 80048; 80053; 80069; 80202; 81001; 82140; 82272; 82274; 82330; 82803; 82947; 83605; 83735; 83880; 84100; 84145; 84295; 84484; 85014; 85018; 85025; 85347; 85610; 85651; 85730; 86140; 87040; 87070; 87086; 87205; 87486; 87581; 87633; 87798; 92523; 93005; 93010; 93454; 94002; 94003; 94660; 94762; 95819; 96374; 96375; 97116; 97162; 97166; 97530; 97535; 99152; 99153; 99291-25; C1725; C1751; C1760; C1769; C1874; C1887; C1894; C8929; C9113; C9606; J0461; J0692; J0696; J0881; J1200; J1265; J1630; J1644; J1650; J1815; J1940; J1956; J2060; J2250; J2270; J2405; J2704; J2765; J2930; J3010; J3370; J7030; J7050; J7060; J7070; P9046; Q9957; Q9967